=== PATIENT | female | born 1960 | race Caucasian/White ===

== ENCOUNTER 2017-01-07 09:59 | Emergency (ER) | payer OTHER, SELFPAY ==
[2017-01-07] MEDS ORDERED: Sodium Chloride 0.9% 10 ML Syringe FLUSH PRN ×2 (10:38→12:34)
[2017-01-07] MEDS ORDERED: methylPREDNISolone Sodium Succinate 125 MG/2 ML SDV IVPUSH ONE (10:39)
--- NOTE | 2017-01-07 11:45 | CR ---
Chest: Two views of the chest are obtained. Comparison: Previous chest x-ray of 03/02/15. Emphysematous change is seen. Heart size is normal. Upper mediastinum is within normal limits. Lungs are clear. Minimal degenerative spurring noted within the spine. Surgical clips seen within the upper abdomen. Impression: 1. Emphysematous change and other incidental findings. 2. Nothing acute is identified on two-view chest x-ray. Diagnostic code #2
[2017-01-07] MEDS ORDERED: diphenhydrAMINE 50 MG/ML SDV IVPUSH ONE (12:32)
[2017-01-07] MEDS ORDERED: Iopamidol 755 Mg/ML 100 ML Bottle IVPUSH ONE (12:34)
[2017-01-07] MEDS ORDERED: Sodium Chloride 0.9% 100 ML IV SCH (12:45)
--- NOTE | 2017-01-07 12:55 | EDM.PDOC ---
ED HISTORY OF PRESENT ILLNESS - General Chief Complaint: Respiratory Problem Stated Complaint: SHORTNESS OF BREATH/ HAS COPD Time Seen by Provider: 01/07/17 10:31 Source of Information: Reports: Patient History Limitations: Reports: No limitations - History of Present Illness INITIAL COMMENTS - FREE TEXT/NARRATIVE: The patient woke up this morning with shortness of breath and dizziness. She has a history of COPD. She has been a little more short of breath the past few days. She took her nebulizer treatment and it helped some. She has been having heart burn for the past month. She has no fever, chills, or cough. She has no swelling or pain in her legs. She had a charotidendartorectomy last year on the left. She had her right one checked with an US and there was 30% stenosis. She has been hearing a whooshing noise in her right ear lately. She is wondering if she has more of a blockage. Timing/Duration: Reports: Hour(s): (This morning) Severity: moderate Location, General: Reports: abdomen (Heartburn) Improves with: Reports: None Worsens with: Reports: None Associated Symptoms (General): Reports: shortness of breath. Denies: cough, fever/chills, nausea/vomiting - Related Data Allergies/ADRs: Allergies Allergy/AdvReac Type Severity Reaction Status Date / Time iodine Allergy Hives Verified 01/07/17 10:11 morphine Allergy Shortness Verified 01/07/17 10:11 of Breath Penicillins Allergy Other Verified 01/07/17 10:11 shrimp Allergy Hives Verified 01/07/17 10:11 Home Meds: Home Meds Albuterol [Proair HFA] 1 puff PO Q4HR PRN 03/02/15 [History] Albuterol/Ipratropium [DuoNeb 3.0-0.5 MG/3 ML] 3 ml NEB Q4HRRT 03/02/15 [History ] Simvastatin [Zocor] 20 mg PO BEDTIME 03/02/15 [History] traZODone 150 mg PO BEDTIME 03/02/15 [History] Aspirin [Halfprin] 81 mg PO DAILY #30 tab.ec 03/06/15 [Rx] Albuterol [Ventolin HFA] 1 inh INH ASDIRECTED PRN 01/07/17 [History] Multivits Min/Iron/FA/Herb#186 [Hair, Skin and Nails Caplet] 1 tab PO DAILY 11/21 [History] Omeprazole 1 tab PO DAILY PRN 01/07/17 [History] Prednisone [IJD: predniSONE] 40 mg PO WITHBREAKFAST #10 tab 01/07/17 [Rx] Ubidecarenone [Co Q-10] 1 tab PO DAILY 01/07/17 [History] Past Medical History Other HEENT History: Wears glasses Respiratory History: Reports: COPD Other Respiratory History: Has Duoneb inhalers PRN. Currently being treated for Bronchitis Gastrointestinal History: Reports: GERD Other Gastrointestinal History: several colon polyps Other Genitourinary History: history of kidney stones Other OB/BYN History: x2 vag del Other Psychiatric History: 1997 Other Hematologic History: with - Past Surgical History HEENT Surgical History: Reports: Tonsillectomy Cardiovascular Surgical History: Reports: Carotid stents Other Cardiovascular Surgeries/Procedures: History of cardiac catheterization, carotid artery stent GI Surgical History: Reports: Appendectomy, Cholecystectomy Female Surgical History: Reports: Hysterectomy Social & Family History - Tobacco Use Smoking Status *Q: Never Smoker Years of Tobacco use: 50 Used Tobacco, but Quit: No Second Hand Smoke Exposure: Yes - Caffeine Use Caffeine Use: Reports: Coffee - Recreational Drug Use Recreational Drug Use: No ED ROS GENERAL - Review of Systems Review Of Systems: See Below Constitutional: Reports: no symptoms HEENT: Reports: No symptoms Respiratory: Reports: Shortness of Breath, Wheezing. Denies: Cough Cardiovascular: Reports: No symptoms Endocrine: Reports: no symptoms GI/Abdominal: Reports: Abdominal pain (Heart burn). Denies: Nausea, Vomiting : Reports: no symptoms Musculoskeletal: Reports: no symptoms ED EXAM, GENERAL - Physical Exam Exam: See Below Exam Limited By: No limitations General Appearance: alert, no apparent distress Ears: normal external exam Nose: normal inspection Head: atraumatic, normocephalic Neck: normal inspection Respiratory/Chest: no respiratory distress, lungs clear, normal breath sounds Cardiovascular: regular rate, rhythm, no edema, no murmur GI/Abdominal: soft, non tender, no organomegaly, no mass Back Exam: normal inspection Extremities: normal inspection EKG INTERPRETATION EKG Date: 01/07/17 Time: 10:30 Rhythm: other (sinus bradycardia) Rate (beats/min): 58 [place]: normal P-wave: present QRS: normal ST-T: normal QT: normal EKG Interpretation Comments: Q waves in the anterior leads Course - Vital Signs Last Recorded V/S: Last Vital Signs Temp 97.5 F 01/07/17 10:08 Pulse 78 01/07/17 10:08 Resp 18 01/07/17 10:08 BP 172/87 H 01/07/17 10:08 Pulse Ox 98 01/07/17 10:08 - Orders/Labs/Meds Orders: Active Orders 24 hr Category Date Time Status Cardiac Monitoring [RC] . DIRECTED Care 01/07/17 10:38 Active EKG Documentation Completion [RC] STAT Care 01/07/17 10:39 Active Oxygen Therapy [RC] PRN Care 01/07/17 10:38 Active Peripheral IV Care [RC] . DIRECTED Care 01/07/17 10:39 Active CTA Neck W & W/O Contrast [Ang Neck] [CT] Stat Exams 01/07/17 12:28 Ordered Sodium Chloride 0.9% [Normal Saline] 100 ml Med 01/07/17 12:45 Active IV ASDIRECTED Sodium Chloride 0.9% [Saline Flush] Med 01/07/17 10:38 Active 10 ml FLUSH ASDIRECTED PRN Sodium Chloride 0.9% [Saline Flush] Med 01/07/17 12:34 Active 10 ml FLUSH ONETIME PRN Peripheral IV Insertion Adult [OM.PC] Stat Oth 01/07/17 10:38 Ordered Medication Orders Sodium Chloride (Normal Saline) 100 mls @ 65 mls/hr IV ASDIRECTED JAQUAN Sodium Chloride (Saline Flush) 10 ml FLUSH ASDIRECTED PRN PRN Reason: Keep Vein Open Last Admin: 01/07/17 11:00 Dose: 10 ml Sodium Chloride (Saline Flush) 10 ml FLUSH ONETIME PRN PRN Reason: IV FLUSH Labs: Laboratory Tests 01/07/17 01/07/17 Range/Units 11:00 11:00 WBC 6.60 (3.98-10.04) K/mm3 RBC 4.71 (3.98-5.22) M/mm3 Hgb 14.7 (11.2-15.7) gm/L Hct 44.1 (34.1-44.9) % MCV 93.6 (79.4-94.8) fl MCH 31.2 (25.6-32.2) pg MCHC 33.3 (32.2-35.5) g/dl RDW Std Deviation 48.7 H (36.4-46.3) fL Plt Count 257 (182-369) K/mm3 MPV 10.2 (9.4-12.3) fl Neut % (Auto) 57.4 (34.0-71.1) % Lymph % (Auto) 29.4 (19.3-51.7) % [place] % (Auto) 10.5 (4.7-12.5) % Eos % (Auto) 1.7 (0.7-5.8) Baso % (Auto) 0.8 (0.1-1.2) % Neut # (Auto) 3.80 (1.56-6.13) K/mm3 Lymph # (Auto) 1.94 (1.18-3.74) K/mm3 [place] # (Auto) 0.69 H (0.24-0.36) K/mm3 Eos # (Auto) 0.11 (0.04-0.36) K/mm3 Baso # (Auto) 0.05 (0.01-0.08) K/mm3 Sodium 144 (136-145) mEq/L Potassium 3.9 (3.5-5.1) mEq/L Chloride 107 (98-107) mEq/L Carbon Dioxide 27 (21-32) mEq/L Anion Gap 13.9 (5-15) BUN 11 (7-18) mg/dL Creatinine 0.7 (0.55-1.02) mg/dL Est Cr Clr Drug Dosing 82.01 mL/min Estimated GFR (MDRD) > 60 (>60) mL/min BUN/Creatinine Ratio 15.7 (14-18) Glucose 94 (74-106) mg/dL Calcium 9.9 (8.5-10.1) mg/dL Total Bilirubin 0.5 (0.2-1.0) mg/dL AST 14 L (15-37) U/L ALT 25 (14-59) U/L Alkaline Phosphatase 55 (46-116) U/L Troponin I < 0.017 (0.00-0.056) ng/mL Total Protein 7.4 (6.4-8.2) g/dl Albumin 4.1 (3.4-5.0) g/dl Globulin 3.3 gm/dL Albumin/Globulin Ratio 1.2 (1-2) Meds: Medications Generic Name Dose Route Start Last Admin Trade Name Freq PRN Reason Stop Dose Admin Sodium Chloride 100 mls @ 65 mls/hr 01/07/17 12:45 Normal Saline IV ASDIRECTED JAQUAN Sodium Chloride 10 ml 01/07/17 10:38 01/07/17 11:00 Saline Flush FLUSH 10 ml ASDIRECTED PRN Administration Keep Vein Open Sodium Chloride 10 ml 01/07/17 12:34 Saline Flush FLUSH ONETIME PRN IV FLUSH Discontinued Medications Generic Name Dose Route Start Last Admin Trade Name Freq PRN Reason Stop Dose Admin Diphenhydramine HCl 50 mg 01/07/17 12:32 01/07/17 12:47 Benadryl IVPUSH 01/07/17 12:33 50 mg ONETIME ONE Administration Iopamidol 100 ml 01/07/17 12:34 Isovue-370 (76%) IVPUSH 01/07/17 12:35 ONETIME ONE Methylprednisolone Sodium Succinate 125 mg 01/07/17 10:39 01/07/17 11:00 Solu-Medrol IVPUSH 01/07/17 10:40 125 mg ONETIME ONE Administration - Re-Assessments/Exams Free Text/Narrative Re-Assessment/Exam: 01/07/17 12:57 I ordered an IV saline lock, solu-medrol, EKG, CXR and labs. Her EKG shows a sinus bradycardia. Her CBC and CMP look good. Her trooponin was negative. I feel she has a COPD exacerbation. I will get her on some prednisone and she should continue her inhaler. I have ordered a CTA of her neck. I will call them with the results. Departure - Departure Time of Disposition: 13:00 Disposition: Home, Self-Care 01 Condition: good Clinical Impression: COPD exacerbation Prescriptions: Prednisone [IJD: predniSONE] 40 mg PO WITHBREAKFAST #10 tab Referrals: Zoran Zhou MD [Primary Care Provider] - 1 Week Forms: ED Department Discharge Additional Instructions: Take your medication as prescribed and prednisone 40mg daily for 5 days. I will call you the CT results. Follow up with your doctor within 1 week. Take some pepcid daily for 2 weeks for the reflux. - My Orders Last 24 Hours: My Active Orders 01/07/17 10:38 Cardiac Monitoring [RC] . DIRECTED Oxygen Therapy [RC] PRN Sodium Chloride 0.9% [Saline Flush] 10 ml FLUSH ASDIRECTED PRN Peripheral IV Insertion Adult [OM.PC] Stat 01/07/17 10:39 EKG Documentation Completion [RC] STAT Peripheral IV Care [RC] . DIRECTED 01/07/17 12:28 CTA Neck W & W/O Contrast [Ang Neck] [CT] Stat 01/07/17 12:34 Sodium Chloride 0.9% [Saline Flush] 10 ml FLUSH ONETIME PRN 01/07/17 12:45 Sodium Chloride 0.9% [Normal Saline] 100 ml IV ASDIRECTED - Assessment/Plan Last 24 Hours: My Active Orders 01/07/17 10:38 Cardiac Monitoring [RC] . DIRECTED Oxygen Therapy [RC] PRN Sodium Chloride 0.9% [Saline Flush] 10 ml FLUSH ASDIRECTED PRN Peripheral IV Insertion Adult [OM.PC] Stat 01/07/17 10:39 EKG Documentation Completion [RC] STAT Peripheral IV Care [RC] . DIRECTED 01/07/17 12:28 CTA Neck W & W/O Contrast [Ang Neck] [CT] Stat 01/07/17 12:34 Sodium Chloride 0.9% [Saline Flush] 10 ml FLUSH ONETIME PRN 01/07/17 12:45 Sodium Chloride 0.9% [Normal Saline] 100 ml IV ASDIRECTED
[2017-01-07 13:27] VITALS: BP 164/86
--- NOTE | 2017-01-07 14:40 | CT ---
CT angiogram of neck Technique: Multiple axial sections were obtained with contrast primarily in the arterial phase. Imaging obtained from the top the aortic arch through the [place]. Reconstructed MIP images were obtained. Findings: Scattered atherosclerotic calcified plaque is seen which is most prominent within and near the carotid bulbs. Plaque is worse on the right side. No hemodynamic significant stenosis is seen. Vertebral arteries appear to be patent. No aberrant arteries are seen. Mastoid sinuses and middle ear cavities are clear. Impression: 1. Scattered calcified plaque. No hemodynamic significant stenosis is seen. No aberrant arteries are identified. Diagnostic code #2
== END 2017-01-07 13:39 | disposition home or self-care (01) ==
LOC: JD.ED 09:59
DX: J44.1 Chronic obstructive pulmonary disease with (acute) exacerbation (principal); K21.9 Gastro-esophageal reflux disease without esophagitis; Z88.0 Allergy status to penicillin; Z88.5 Allergy status to narcotic agent
CPT/HCPCS: 36415; 70498; 71020; 80053; 84484; 85025; 93005; 96374; 96375; 99285; J1200; J2930; J7030; J7050; Q9967; 99284

== ENCOUNTER 2017-11-15 07:42 | Emergency (ER) | payer SELFPAY ==
--- NOTE | 2017-11-15 08:04 | EDM.PDOC ---
ED HPI GENERAL MEDICAL PROBLEM - General Chief Complaint: Cardiovascular Problem Stated Complaint: HIGH BLOOD PRESSURE Time Seen by Provider: 11/15/17 08:03 - History of Present Illness INITIAL COMMENTS - FREE TEXT/NARRATIVE: 57-year-old female presents emergency room with high blood pressure. Initial blood pressure emergency room is 214/94. Patient awoke this morning with a pounding headache she checked her blood pressure systolic was 220 over 90s. Patient takes losartan 25 mg in the evening and hydrochlorothiazide 25 mg in the morning she did take her morning hydrochlorothiazide. The patient is not expectorating any chest pain chest pressure or shortness of breath other than her baseline shortness of breath from her emphysema and COPD. She's had no nausea no vomiting. Normally her blood pressures been fairly well controlled. The patient's been having some intermittent chest pain on the left side however she has not had any of this chest pain today. The patient is scheduled for a Shahida scan on Thursday. Patient does have some intermittent acid reflux she uses as needed ranitidine or Prilosec. The ranitidine does not work as well as the Prilosec for her. Patient has a very strong family history of heart disease with people dying at premature ages including a sister, and a brother who had diabetes. The patient quit smoking but has a significant smoking history. - Related Data Allergies Allergy/AdvReac Type Severity Reaction Status Date / Time iodine Allergy Hives Verified 11/15/17 07:53 morphine Allergy Shortness Verified 11/15/17 07:53 of Breath Penicillins Allergy Other Verified 11/15/17 07:53 shrimp Allergy Hives Verified 11/15/17 07:53 Home Meds: Home Meds Albuterol [Proair HFA] 1 puff PO Q4HR PRN 03/02/15 [History] Albuterol/Ipratropium [DuoNeb 3.0-0.5 MG/3 ML] 3 ml NEB Q4HRRT 03/02/15 [History ] traZODone 150 mg PO BEDTIME 03/02/15 [History] Aspirin [Halfprin] 81 mg PO DAILY #30 tab.ec 03/06/15 [Rx] Albuterol [Ventolin HFA] 1 inh INH ASDIRECTED PRN 01/07/17 [History] Multivits Min/Iron/FA/Herb#186 [Hair, Skin and Nails Caplet] 1 tab PO DAILY 11/21 [History] Hydrochlorothiazide 25 mg PO DAILY 11/15/17 [History] Losartan [Cozaar] 25 mg PO DAILY 11/15/17 [History] Past Medical History Other HEENT History: Wears glasses Cardiovascular History: Reports: Hypertension Respiratory History: Reports: COPD Other Respiratory History: Has Duoneb inhalers PRN. Currently being treated for Bronchitis Gastrointestinal History: Reports: GERD Other Gastrointestinal History: several colon polyps Other Genitourinary History: history of kidney stones Other OB/BYN History: x2 vag del Other Psychiatric History: 1997 Other Hematologic History: with - Past Surgical History HEENT Surgical History: Reports: Tonsillectomy Cardiovascular Surgical History: Reports: Carotid Stents GI Surgical History: Reports: Appendectomy, Cholecystectomy Female Surgical History: Reports: Hysterectomy Social & Family History - Tobacco Use Smoking Status *Q: Current Every Day Smoker Years of Tobacco use: 40 Packs/Tins Daily: 0.5 Used Tobacco, but Quit: No Second Hand Smoke Exposure: Yes - Caffeine Use Caffeine Use: Reports: Coffee - Recreational Drug Use Recreational Drug Use: No ED ROS GENERAL - Review of Systems Review Of Systems: See Below Constitutional: Reports: No Symptoms, Weight Gain Respiratory: Reports: No Symptoms Cardiovascular: Reports: Blood Pressure Problem. Denies: Chest Pain, Edema, Lightheadedness, Palpitations, Syncope Endocrine: Reports: No Symptoms GI/Abdominal: Reports: No Symptoms : Reports: No Symptoms Neurological: Reports: Headache. Denies: Confusion, Dizziness, Seizure, Syncope , Difficulty Walking, Gait Disturbance Psychiatric: Reports: Anxiety. Denies: Agitation, Confusion, Depression, Mood Lability Hematologic/Lymphatic: Reports: No Symptoms Immunologic: Reports: No Symptoms ED EXAM, GENERAL - Physical Exam Exam: See Below Exam Limited By: Uncooperative General Appearance: No Apparent Distress, Other (Blood pressure is indeed elevated however this comes down with observation alone last systolic was down to 154) Eye Exam: Bilateral Eye: Normal Inspection Head: Atraumatic, Normocephalic Neck: Normal Inspection, Supple, Non-Tender, Full Range of Motion. No: Lymphadenopathy (L), Lymphadenopathy (R), Tender Lateral, Tender Midline Respiratory/Chest: No Respiratory Distress, Lungs Clear, Decreased Breath Sounds (Slightly). No: Crackles, Rales, Rhonchi, Wheezing Cardiovascular: Normal Peripheral Pulses, Regular Rate, Rhythm, No Edema, No Murmur GI/Abdominal: Normal Bowel Sounds, Soft, No Distention, Other (She has some epigastric discomfort with palpation however this is not causing her any problems.). No: Distended, Guarding, Rigid, Rebound Back Exam: Normal Inspection. No: CVA Tenderness (L), CVA Tenderness (R) Extremities: Normal Inspection, No Pedal Edema Neurological: Alert, Oriented, Normal Cognition Psychiatric: Normal Affect, Anxious (Slightly) EKG INTERPRETATION EKG Date: 11/15/17 Rhythm: NSR [place]: Normal P-Wave: Present QRS: Other (Q waves in V1,2,3) ST-T: Normal (Q waves in V12 and 3) QT: Normal Comparison: No Change (No change from January of last year) EKG Interpretation Comments: Unchanged abnormal EKG no acute ischemia suspected on this EKG. Course - Vital Signs Last Recorded V/S: Last Vital Signs Temp 37.2 C 11/15/17 07:50 Pulse 58 L 11/15/17 10:15 Resp 16 11/15/17 10:15 BP 155/90 H 11/15/17 10:15 Pulse Ox 98 11/15/17 10:36 - Orders/Labs/Meds Orders: Active Orders 24 hr Category Date Time Status EKG Documentation Completion [RC] ASDIRECTED Care 11/15/17 07:57 Active EKG Documentation Completion [RC] STAT Care 11/15/17 08:17 Inactive RT Aerosol Therapy [RC] ASDIRECTED Care 11/15/17 10:36 Active Chest 1V Frontal [CR] Stat Exams 11/15/17 08:17 Taken EKG 12 Lead [EK] Stat Ther 11/15/17 07:57 Ordered Labs: Laboratory Tests 11/15/17 11/15/17 11/15/17 Range/Units 08:30 08:33 08:33 WBC 6.96 (3.98-10.04) K/mm3 RBC 4.93 (3.98-5.22) M/mm3 Hgb 15.3 (11.2-15.7) gm/L Hct 45.9 H (34.1-44.9) % MCV 93.1 (79.4-94.8) fl MCH 31.0 (25.6-32.2) pg MCHC 33.3 (32.2-35.5) g/dl RDW Std Deviation 48.1 H (36.4-46.3) fL Plt Count 269 (182-369) K/mm3 MPV 10.1 (9.4-12.3) fl Neutrophils % (Manual) 59 (40-60) % Band Neutrophils % 0 (0-10) % Lymphocytes % (Manual) 35 (20-40) % Atypical Lymphs % 0 % Monocytes % (Manual) 4 (2-10) % Eosinophils % (Manual) 2 (0.7-5.8) % Basophils % (Manual) 0 L (0.1-1.2) Platelet Estimate Adequate RBC Morph Comment Normal Sodium 142 (136-145) mEq/L Potassium 3.9 (3.5-5.1) mEq/L Chloride 104 (98-107) mEq/L Carbon Dioxide 28 (21-32) mEq/L Anion Gap 13.9 (5-15) BUN 10 (7-18) mg/dL Creatinine 0.8 (0.55-1.02) mg/dL Est Cr Clr Drug Dosing 70.88 mL/min Estimated GFR (MDRD) > 60 (>60) mL/min BUN/Creatinine Ratio 12.5 L (14-18) Glucose 109 H (74-106) mg/dL Calcium 9.9 (8.5-10.1) mg/dL Total Bilirubin 0.3 (0.2-1.0) mg/dL AST 17 (15-37) U/L ALT 31 (14-59) U/L Alkaline Phosphatase 66 (46-116) U/L Troponin I < 0.017 (0.00-0.056) ng/mL Total Protein 7.7 (6.4-8.2) g/dl Albumin 4.1 (3.4-5.0) g/dl Globulin 3.6 gm/dL Albumin/Globulin Ratio 1.1 (1-2) Urine Color Light yellow (Yellow) Urine Appearance Clear (Clear) Urine pH 7.0 (5.0-8.0) Ur Specific [place] 1.015 (1.005-1.030) Urine Protein Negative (Negative) Urine Glucose (UA) Negative (Negative) Urine Ketones Negative (Negative) Urine Occult Blood Negative (Negative) Urine Nitrite Negative (Negative) Urine Bilirubin Negative (Negative) Urine Urobilinogen 0.2 (0.2-1.0) Ur Leukocyte Esterase Trace H (Negative) Urine RBC Not seen (0-5) /hpf Urine WBC 0-5 (0-5) /hpf Ur Epithelial Cells 5-10 H (0-5) /hpf Ur Squamous Epith Cells 5-10 H (0-5) /hpf Urine Bacteria Not seen (FEW) /hpf Urine Mucus Not seen (FEW) /hpf 11/15/17 Range/Units 10:45 WBC (3.98-10.04) K/mm3 RBC (3.98-5.22) M/mm3 Hgb (11.2-15.7) gm/L Hct (34.1-44.9) % MCV (79.4-94.8) fl MCH (25.6-32.2) pg MCHC (32.2-35.5) g/dl RDW Std Deviation (36.4-46.3) fL Plt Count (182-369) K/mm3 MPV (9.4-12.3) fl Neutrophils % (Manual) (40-60) % Band Neutrophils % (0-10) % Lymphocytes % (Manual) (20-40) % Atypical Lymphs % % Monocytes % (Manual) (2-10) % Eosinophils % (Manual) (0.7-5.8) % Basophils % (Manual) (0.1-1.2) Platelet Estimate RBC Morph Comment Sodium (136-145) mEq/L Potassium (3.5-5.1) mEq/L Chloride (98-107) mEq/L Carbon Dioxide (21-32) mEq/L Anion Gap (5-15) BUN (7-18) mg/dL Creatinine (0.55-1.02) mg/dL Est Cr Clr Drug Dosing mL/min Estimated GFR (MDRD) (>60) mL/min BUN/Creatinine Ratio (14-18) Glucose (74-106) mg/dL Calcium (8.5-10.1) mg/dL Total Bilirubin (0.2-1.0) mg/dL AST (15-37) U/L ALT (14-59) U/L Alkaline Phosphatase (46-116) U/L Troponin I < 0.017 (0.00-0.056) ng/mL Total Protein (6.4-8.2) g/dl Albumin (3.4-5.0) g/dl Globulin gm/dL Albumin/Globulin Ratio (1-2) Urine Color (Yellow) Urine Appearance (Clear) Urine pH (5.0-8.0) Ur Specific [place] (1.005-1.030) Urine Protein (Negative) Urine Glucose (UA) (Negative) Urine Ketones (Negative) Urine Occult Blood (Negative) Urine Nitrite (Negative) Urine Bilirubin (Negative) Urine Urobilinogen (0.2-1.0) Ur Leukocyte Esterase (Negative) Urine RBC (0-5) /hpf Urine WBC (0-5) /hpf Ur Epithelial Cells (0-5) /hpf Ur Squamous Epith Cells (0-5) /hpf Urine Bacteria (FEW) /hpf Urine Mucus (FEW) /hpf Meds: Medications Discontinued Medications Generic Name Dose Route Start Last Admin Trade Name Freq PRN Reason Stop Dose Admin Albuterol/Ipratropium 3 ml 11/15/17 10:36 11/15/17 10:42 Duoneb 3.0-0.5 Mg/3 Ml NEB 11/15/17 10:37 3 ml ONETIME ONE Administration Losartan Potassium 25 mg 11/15/17 09:00 11/15/17 09:11 Cozaar PO 11/15/17 09:01 25 mg ONETIME ONE Administration Sucralfate 1 gm 11/15/17 08:44 11/15/17 08:52 Carafate PO 11/15/17 08:45 1 gm ONETIME ONE Administration - Re-Assessments/Exams Free Text/Narrative Re-Assessment/Exam: 11/15/17 09:13 At this point we'll increase her losartan 25 mg twice daily down the road it may really be reasonable to stop her Con chlorothiazide change her to chlorthalidone however use caution as her potassium will be more likely to drop on the chlorthalidone. At this point we'll check head CT with her headache and elevated blood pressure cardiac labs cannot entirely exclude an anginal equivalent 11/15/17 09:[address] normal. Chest x-ray no acute changes unchanged from January of last year. Creatinine and other labs appear acceptable. Troponin negative. Her headache is better. 11/15/17 10:37 Urine back looks normal the patient is developed increasing shortness of breath. We will give her a DuoNeb she uses these at home. We'll check a second troponin. 11/15/17 12:05 Second troponin negative the patient has been breathing just fine after her nebulizer treatment with no recurrence of shortness of breath. Did discuss discharge plans she will increase her losartan to 25 mg twice daily and continue the hydrochlorothiazide 25 mg in the morning. Departure - Departure Time of Disposition: 12:05 Disposition: Home, Self-Care 01 Clinical Impression: Hypertension Referrals: Zoran Zhou MD [Primary Care Provider] - Forms: ED Department Discharge Additional Instructions: Return to the emergency room with any questions problems or worsening symptoms. Follow up with Dr. Silva as scheduled. Continue your hydrochlorothiazide every morning. Increase the losartan 25 mg to one in the morning and 1 in the evening. Follow-up with your stress test, the Shahida scan, as scheduled. - My Orders Last 24 Hours: My Active Orders 11/15/17 07:57 EKG Documentation Completion [RC] ASDIRECTED EKG 12 Lead [EK] Stat 11/15/17 08:17 EKG Documentation Completion [RC] STAT Chest 1V Frontal [CR] Stat 11/15/17 10:36 RT Aerosol Therapy [RC] ASDIRECTED - Assessment/Plan Last 24 Hours: My Active Orders 11/15/17 07:57 EKG Documentation Completion [RC] ASDIRECTED EKG 12 Lead [EK] Stat 11/15/17 08:17 EKG Documentation Completion [RC] STAT Chest 1V Frontal [CR] Stat 11/15/17 10:36 RT Aerosol Therapy [RC] ASDIRECTED
[2017-11-15] MEDS ORDERED: Sucralfate Suspension 1 GM/10 ML Cup PO ONE (08:44)
[2017-11-15] MEDS ORDERED: Losartan 25 MG Tab PO ONE (09:00)
--- NOTE | 2017-11-15 09:24 | CT ---
Head CT Technique: Multiple axial sections through the brain were obtained. Intravenous contrast was not utilized. Comparison: Prior head CT exam of 05/04/15 and MRI brain of 02/24/1915. Findings: Ventricles along with basal cisterns and sulci over the convexities are within normal limits for the patient's age. Minimal calcification is seen within the cortical surface on the left side within the left anterior parietal region which is stable from prior exam and is therefore incidental. Minimal basal ganglia calcification is seen. No abnormal parenchymal densities are otherwise seen. No evidence of intracranial hemorrhage. No midline shift or mass effect is seen. Atherosclerotic calcification is seen within the carotid siphon and vertebral vessels. Visualized sinuses are clear. No acute calvarial abnormality is seen. Impression: 1. Nothing acute is seen on noncontrast head CT study with incidental findings. No significant change is seen from previous head CT exam. Diagnostic code #2
[2017-11-15 10:21] VITALS: BP 155/90
[2017-11-15] MEDS ORDERED: Albuterol/Ipratropium 3.0-0.5 MG/3 ML Neb Soln NEB ONE (10:36)
--- NOTE | 2017-11-16 08:00 | CR ---
Chest: Frontal view of the chest was obtained. Comparison: Prior chest x-ray of 01/07/17. Slight scarring is noted of the left cardiac apex. Lungs otherwise are clear. Bony structures are unremarkable. Surgical clips are seen from prior cholecystectomy. Impression: 1. Incidental findings. Nothing acute is appreciated on frontal chest x-ray. Diagnostic code #2
== END 2017-11-15 12:11 | disposition home or self-care (01) ==
LOC: JD.ED 07:42
DX: I10 Essential (primary) hypertension (principal); J44.9 Chronic obstructive pulmonary disease, unspecified; K21.9 Gastro-esophageal reflux disease without esophagitis; F17.210 Nicotine dependence, cigarettes, uncomplicated; Z79.82 Long term (current) use of aspirin; Z79.899 Other long term (current) drug therapy; Z88.0 Allergy status to penicillin; Z88.5 Allergy status to narcotic agent; Z88.8 Allergy status to other drugs, medicaments and biological substances; Z91.013 Allergy to seafood
CPT/HCPCS: 36415; 70450; 71045; 80053; 81001; 84484; 85025; 93005; 94640; 99284; A9270; 93010

== ENCOUNTER 2018-01-02 11:18 | Emergency (ER) | payer SELFPAY ==
--- NOTE | 2018-01-02 11:47 | EDM.PDOC ---
ED HPI GENERAL MEDICAL PROBLEM - General Chief Complaint: Cardiovascular Problem Stated Complaint: High blood preasure AFTER STENTS PLACED Time Seen by Provider: 01/02/18 11:30 Source of Information: Reports: Patient, Family History Limitations: Reports: No Limitations (Daughter) - History of Present Illness INITIAL COMMENTS - FREE TEXT/NARRATIVE: 57-year-old female presents to the ED due to elevated blood pressure recordings at home today. She found her BP to be around 193 100 this morning. Current blood pressure here is 187/83. Initial recording when she came into the ED was 178/97. Patient had coronary stents 5 placed on [address] [place] Whittington and Dr. Dewey are her industrial retrofit designer. The right radial artery was used to place the stents in the right coronary artery. Apparently all 5 stents are in the right coronary artery. She had failed a stress test that was performed mid November. She apparently on echocardiogram within the last week is identified to have mitral prolapse syndrome as well with mild mitral insufficiency. 2 days ago i.e. when she got out of the hospital her blood pressure was recorded to be only 88/48. This was associated with feeling dizzy and lightheaded. Upon instructions from the industrial retrofit designer she withheld her valsartan and hydrochlorothiazide. She is on C she is now on Plavix and a baby aspirin daily. No headache but feeling slightly dizzy today even sitting. She is quite apprehensive and anxious clinically. arvedilol 3.125 mg twice a day. This is the newest medication for her. She has known COPD and quit smoking 4 years ago. She is not on home oxygen. Onset: Today Onset Date: 01/02/18 (Blood pressures are elevated at home today. Got 190s over 100 today at home.) Duration: Hour(s): Location: Reports: Other Quality: Reports: Other (Dizzy.) Severity: Mild Improves with: Reports: None Worsens with: Reports: None Context: Denies: Activity, Exercise, Lifting, Sick Contact, Trauma, Other Associated Symptoms: Denies: No Other Symptoms, Confusion, Chest Pain, Cough, cough w sputum, Diaphoresis, Fever/Chills, Headaches, Loss of Appetite, Malaise , Nausea/Vomiting, Rash, Seizure, Shortness of Breath, Syncope Treatments SKEIN WINDER: Reports: Other (see below) (None.) - Related Data Allergies Allergy/AdvReac Type Severity Reaction Status Date / Time iodine Allergy Hives Verified 11/15/17 07:53 morphine Allergy Shortness Verified 11/15/17 07:53 of Breath Penicillins Allergy Other Verified 11/15/17 07:53 shrimp Allergy Hives Verified 11/15/17 07:53 Home Meds: Home Meds Albuterol [Proair HFA] 1 puff PO Q4HR PRN 03/02/15 [History] Albuterol/Ipratropium [DuoNeb 3.0-0.5 MG/3 ML] 3 ml NEB Q4HRRT 03/02/15 [History ] traZODone 150 mg PO BEDTIME 03/02/15 [History] Aspirin [Halfprin] 81 mg PO DAILY #30 tab.ec 03/06/15 [Rx] Albuterol [Ventolin HFA] 1 inh INH ASDIRECTED PRN 01/07/17 [History] Multivits Min/Iron/FA/Herb#186 [Hair, Skin and Nails Caplet] 1 tab PO DAILY 11/21 [History] Hydrochlorothiazide 25 mg PO DAILY 11/15/17 [History] Losartan [Cozaar] 25 mg PO DAILY 11/15/17 [History] Past Medical History Other HEENT History: Wears glasses Cardiovascular History: Reports: Hypertension, Stents Other Cardiovascular History: [facility] Respiratory History: Reports: COPD Other Respiratory History: Has Duoneb inhalers PRN. Currently being treated for Bronchitis Gastrointestinal History: Reports: GERD Other Gastrointestinal History: several colon polyps Other Genitourinary History: history of kidney stones Other OB/BYN History: x2 vag del Other Psychiatric History: 1997 Other Hematologic History: with - Past Surgical History HEENT Surgical History: Reports: Tonsillectomy Cardiovascular Surgical History: Reports: Carotid Stents GI Surgical History: Reports: Appendectomy, Cholecystectomy Female Surgical History: Reports: Hysterectomy Social & Family History - Tobacco Use Smoking Status *Q: Former Smoker Years of Tobacco use: 40 Packs/Tins Daily: 0.5 Used Tobacco, but Quit: Yes Month/Year Tobacco Last Used: 4 yrs Second Hand Smoke Exposure: Yes - Caffeine Use Caffeine Use: Reports: Coffee - Recreational Drug Use Recreational Drug Use: No - Living Situation & Occupation Living situation: Reports: Single Occupation: Employed ED ROS GENERAL - Review of Systems Review Of Systems: See Below Constitutional: Reports: Decreased Appetite (Has not eaten yet today. Feels thirsty.). Denies: Fever, Chills, Malaise, Weakness, Fatigue, Weight Loss HEENT: Reports: No Symptoms Respiratory: Reports: No Symptoms Cardiovascular: Denies: Chest Pain, Blood Pressure Problem, Claudication, Dyspnea on Exertion, Edema, Lightheadedness, Orthopnea Endocrine: Reports: No Symptoms GI/Abdominal: Reports: Decreased Appetite : Reports: No Symptoms Skin: Reports: Other (Bruising volar aspect of the right forearm the distribution of the radial vein. The is ecchymoses up to the antecubital fossa. Range of motion is normal. ) Neurological: Reports: No Symptoms. Denies: Confusion, Dizziness, Headache, Numbness Psychiatric: Reports: No Symptoms Hematologic/Lymphatic: Reports: No Symptoms ED EXAM, GENERAL - Physical Exam Exam: See Below Exam Limited By: No Limitations General Appearance: Alert, WD/WN, Anxious Eye Exam: Bilateral Eye: Normal Inspection Head: Atraumatic, Normocephalic Neck: Normal Inspection, Supple, Non-Tender, Full Range of Motion. No: Lymphadenopathy (L), Lymphadenopathy (R) Respiratory/Chest: No Respiratory Distress, Lungs Clear, Normal Breath Sounds, No Accessory Muscle Use Cardiovascular: Normal Peripheral Pulses, Regular Rate, Rhythm, No Edema, No Gallop, No Murmur (Examination both the lying and seated position and I could not detect any murmur. Apparently she has mitral valve prolapse on recent echo.) Peripheral Pulses: 3+: Posterior Tibial (L), Posterior Tibial (R), Dorsalis Pedis (L), Dorsalis Pedis (R) GI/Abdominal: Normal Bowel Sounds, Soft, Non-Tender, No Organomegaly Back Exam: Normal Inspection, Full Range of Motion. No: CVA Tenderness (R) Extremities: Other (Ecchymoses volar aspect of the right forearm where she had radial artery catheterized for stent placement.) Neurological: Alert, Oriented, CN II-XII Intact, Normal Cognition Psychiatric: Anxious Course - Vital Signs Last Recorded V/S: Last Vital Signs Temp 36.4 C 01/02/18 11:29 Pulse 73 01/02/18 11:29 Resp 15 01/02/18 11:29 BP 178/97 H 01/02/18 11:29 Pulse Ox 98 01/02/18 11:29 - Radiology Interpretation Free Text/Narrative:: 57-year-old female presents the ED with elevated blood pressure at home reportedly 193/100. Initial blood pressure here was 178/97. The next was 183/ 87. Current blood pressure is now 159/76. She is quite anxious about recent events requiring 5 stents placement in her right coronary artery 5 days ago. She is currently not taking her bowel sounds from or hydrochlorothiazide due to low blood pressure the day after she got home from the hospital. Venous blood pressure was checked at home reportedly was only 88 systolic. She was therefore instructed to place these medications on hold. Appears that this was likely a misnomer. It's likely that her blood pressure is going up without the medication that she was normally prescribed. I'm going to wait and see how her blood pressure pounds over the next 20-30 minutes. - Re-Assessments/Exams Free Text/Narrative Re-Assessment/Exam: 01/02/18 12:35 blood pressures continued to improve while in the department. Current blood pressure is now 144 and 71. She is much less anxious. She's had a tough day since she's been up since 3:00 this morning due to her mom falling outside when she took the dog broke to go to the bathroom. Mom ended up suffering a deep laceration above her left eyebrow and needed to come to the hospital. She is thus admitted to the hospital with a fractured humerus. Therefore its been a very stressful morning events likely why her blood pressure was elevated. I will return her to valsartan 25 mg twice daily and hydrochlorothiazide 25 mg in the morning only. Prior to that she was on 50 mg of losartan at bedtime and 20 5 in the morning. Back a little bit since she's currently on carvedilol which is a new medication for her. Departure - Departure Time of Disposition: 12:37 Disposition: Home, Self-Care 01 Condition: Fair Clinical Impression: Essential hypertension Referrals: Zoran Zhou MD [Primary Care Provider] - Forms: ED Department Discharge Additional Instructions: Evaluation in the emergency room today in regards to elevated blood pressure first identified at home this morning and confirmed elevated when you first attended the ED. The highest number we got was 183/97. Over time i.e. watchful waiting blood pressure continued to improve and at the time of discharge is down to 144/71. No heart rhythm abnormalities were detected the entire time you' re in the ED. However it stayed in the 150s for quite a lengthy period of time suggesting that you still have mildly elevated systolic blood pressure which is the top number. The bottom number is normal as is under 85. My suggestion is to return to the valsartan 25 mg only twice daily instead of 50 mg in the evening. And the hydrochlorothiazide thiazide 25 mg in the morning may be continued as well. Continue to check blood pressure daily usually first thing in the morning and follow-up with industrial retrofit designer next week as planned.
[2018-01-02 13:01] VITALS: BP 144/71
== END 2018-01-02 12:55 | disposition home or self-care (01) ==
LOC: JD.ED 11:18
DX: S50.11XA Contusion of right forearm, initial encounter (principal); I10 Essential (primary) hypertension; J44.9 Chronic obstructive pulmonary disease, unspecified; K21.9 Gastro-esophageal reflux disease without esophagitis; Z91.09 Other allergy status, other than to drugs and biological substances; Z88.0 Allergy status to penicillin; Z91.013 Allergy to seafood; Z79.82 Long term (current) use of aspirin; Z79.899 Other long term (current) drug therapy; Z87.891 Personal history of nicotine dependence; Z90.49 Acquired absence of other specified parts of digestive tract; Z95.5 Presence of coronary angioplasty implant and graft; Z88.8 Allergy status to other drugs, medicaments and biological substances; Z87.442 Personal history of urinary calculi; X58.XXXA Exposure to other specified factors, initial encounter
CPT/HCPCS: 99283

== ENCOUNTER 2019-02-03 19:01 | Emergency (ER) | payer MEDICAID, OTHER ==
[2019-02-03 19:16] VITALS: BP 158/73
--- NOTE | 2019-02-03 20:05 | EDM.PDOC ---
ED HPI GENERAL MEDICAL PROBLEM - General Chief Complaint: Respiratory Problem Stated Complaint: OXYGEN LOW Time Seen by Provider: 02/03/19 19:41 Source of Information: Reports: Patient, RN Notes Reviewed History Limitations: Reports: No Limitations - History of Present Illness INITIAL COMMENTS - FREE TEXT/NARRATIVE: The patient states that she has a history of COPD, although, to her knowledge, she has never been evaluated by a Dining Room Attendant, and has never undergone pulmonary function tests. She states that she has been experiencing dyspnea on exertion for the past 6-7 months, and dyspnea at rest for the past few months. She reports 3 weeks of a cough productive of yellowish sputum. She states that she might have had slight wheezing. No recent fever. No recent chest pain or palpitations. The patient states that she checks her oxygen saturation with a finger pulse oximeter at home whenever she feels short of breath, which is typically 6-7 times a day. She takes a DuoNeb 4 times a day, and an albuterol MDI 1-2 times a day (the patient does not have a space chamber, she does not shake the MDI long enough, and her technique is poor). The patient now presents to the ED, stating that her oxygen saturation was in the low 80s earlier today. Here in the ED, her initial oxygen saturation was found to be 88%, however, I noticed that the waveform had poor correlation with the patient's monitor worker. I switched the oximeter to a different finger, finding her oxygen saturation to be around 93% with good correlation. The patient's PCP is Dr. Zoran Zhou. Her Physiology Teacher is Dr. Luis Felder. The patient does not recall the name of her vascular surgeon. - Related Data Allergies Allergy/AdvReac Type Severity Reaction Status Date / Time iodine Allergy Hives Verified 02/03/19 19:15 morphine Allergy Shortness Verified 02/03/19 19:15 of Breath Penicillins Allergy Other Verified 02/03/19 19:15 shrimp Allergy Hives Verified 02/03/19 19:15 Home Meds: Home Meds Albuterol [Proair HFA] 1 puff PO Q4HR PRN 03/02/15 [History] Albuterol/Ipratropium [DuoNeb 3.0-0.5 MG/3 ML] 3 ml NEB Q4HRRT 03/02/15 [History ] traZODone 150 mg PO BEDTIME 03/02/15 [History] Aspirin [Halfprin] 81 mg PO DAILY #30 tab.ec 03/06/15 [Rx] Multivit-Min/Iron/Folic/Rou374 [Hair, Skin and Nails Caplet] 1 tab PO DAILY 11/21 [History] Losartan [Cozaar] 25 mg PO DAILY 11/15/17 [History] hydroCHLOROthiazide [Hydrochlorothiazide] 25 mg PO DAILY 11/15/17 [History] Biotin 2,000 mg PO DAILY 01/02/18 [History] Budesonide/Formoterol Fumarate [Symbicort 80-4.5 Mcg Inhaler] 2 puff INH BID [History] Carvedilol 3.125 mg PO BID 01/02/18 [History] Clopidogrel [Plavix] 75 mg PO DAILY 01/02/18 [History] Losartan [Cozaar] 50 mg PO BEDTIME 01/02/18 [History] Nitroglycerin 1 tab SL ASDIRECTED PRN 01/02/18 [History] Pantoprazole [ProTONIX] 40 mg PO DAILY 01/02/18 [History] Rosuvastatin [Crestor] 20 mg PO DAILY 01/02/18 [History] Ubidecarenone [Co Q-10] 10 mg PO DAILY 01/02/18 [History] Past Medical History HEENT History: Reports: Impaired Vision Other HEENT History: Wears glasses Cardiovascular History: Reports: CAD, High Cholesterol, Hypertension Respiratory History: Reports: COPD (likely, but never tested) Gastrointestinal History: Reports: Colon Polyp, GERD Genitourinary History: Reports: Renal Calculus Musculoskeletal History: Reports: Arthritis Neurological History: Reports: TIA Psychiatric History: Reports: Other (See Below) (Insomnia) - Past Surgical History HEENT Surgical History: Reports: Oral Surgery (wisdom teeth extraction), Tonsillectomy Cardiovascular Surgical History: Reports: Carotid Endarterectomy (left), Coronary Artery Stent (x 5, 12/29/2017), Other (See Below) (Coronary angiogram approximately 2002 with mild disease. Coronary angiogram 12/29/2017 with multivessel disease) GI Surgical History: Reports: Appendectomy, Cholecystectomy (1997), Colonoscopy (x 2). 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 ED EXAM, GENERAL - Physical Exam Exam: See Below Exam Limited By: No Limitations General Appearance: Alert, WD/WN, No Apparent Distress Eye Exam: Bilateral Eye: EOMI, Normal Inspection Ears: Normal External Exam, Hearing Grossly Normal Nose: Normal Inspection Throat/Mouth: Normal Inspection, Normal Lips, Normal Voice, No Airway Compromise Head: Atraumatic, Normocephalic Neck: Normal Inspection, Full Range of Motion Respiratory/Chest: No Respiratory Distress, No Accessory Muscle Use, Chest Non- Tender, Crackles (few bibasilar). No: Decreased Breath Sounds, Rhonchi, Wheezing, Prolonged Expiration Cardiovascular: Normal Peripheral Pulses, Regular Rate, Rhythm, No Gallop, No JVD, No Murmur, No Rub Peripheral Pulses: 4+: Radial (L), Radial (R) GI/Abdominal: Normal Bowel Sounds, Soft, Non-Tender, No Organomegaly, No Distention, No Abnormal Bruit, No Mass (Female) Exam: Deferred Rectal (Female) Exam: Deferred Back Exam: Normal Inspection, Full Range of Motion, NT Extremities: Normal Inspection, Normal Range of Motion, No Pedal Edema, Normal Capillary Refill Neurological: Alert, Oriented, Normal Cognition, No Motor/Sensory Deficits Psychiatric: Normal Affect Skin Exam: Warm, Dry, Intact, Normal Color, No Rash Course - Vital Signs Last Recorded V/S: Last Vital Signs Temp 36.5 C 02/03/19 19:13 Pulse 90 02/03/19 19:13 Resp 18 02/03/19 19:13 BP 158/73 H 02/03/19 19:13 Pulse Ox 88 L 02/03/19 19:13 - Re-Assessments/Exams Free Text/Narrative Re-Assessment/Exam: 02/03/19 20:03 The patient's oxygen saturation was in the high 80s, however, there was very poor correlation on the waveform. I switched her pulse oximeter to a different finger and managed to get a good correlation with her monitor worker, and at that time, her oxygen saturation was 93% on room air. Based on that reading, the patient would not qualify for supplemental oxygen, however, I will have the respiratory therapist check the patient's oxygen saturation with ambulation, to see if she might qualify under those circumstances. On auscultation, the patient has a few bibasilar crackles, but no expiratory wheezes whatsoever, with good air movement and no prolonged expiratory phase. I have ordered a chest x-ray, but if relatively unremarkable, I don't need blood work. 02/03/19 20:31 Two-view chest radiograph reviewed. The cardiac silhouette is within normal limits. No pulmonary vascular congestion. No pleural effusions. No focal infiltrate. No pneumothorax. There is hyperinflation and bilateral diaphragmatic flattening, consistent with COPD. [place] are seen on the lateral projection that likely correlate to a prior cholecystectomy. Formal read per the Radiologist pending. The patient was ambulated on room air, and maintained an oxygen saturation of 89 -91%. Based on the above findings, the patient does not qualify for supplemental oxygen at this time. While the patient likely has COPD, the diagnosis of COPD is made by pulmonary function tests. For today's purposes, I will have the respiratory therapist provide the patient a space chamber, for when she does require albuterol, and I will recommend that the patient follow-up with her PCP to discuss the option of referral to a Dining Room Attendant for PFTs. Departure - Departure Time of Disposition: 21:00 Disposition: Home, Self-Care 01 Condition: Good Clinical Impression: Dyspnea - Discharge Information *PRESCRIPTION DRUG MONITORING PROGRAM REVIEWED*: Not Applicable *COPY OF PRESCRIPTION DRUG MONITORING REPORT IN PATIENT [place]: Not Applicable Referrals: Zoran Zhou MD [Primary Care Provider] - Luis Felder DO [Ordering Only Provider] - Forms: ED Department Discharge Additional Instructions: You were seen in the emergency room for a low oxygen saturation reading at home. Workup in the ER included a chest x-ray, which showed changes consistent with emphysema, but no suggestion of pneumonia. As discussed, the diagnosis of COPD is made by pulmonary function tests, not by chest x-ray. You likely have COPD, but need pulmonary function tests to be certain. Your oxygen saturation was found to be 93% on room air at rest, and 89-91% with ambulation. As discussed, you do not currently qualify for supplemental oxygen. You likely will one day, but not today. You were provided a space chamber by the respiratory therapist. Use this any time you use a metered-dose inhaler - your albuterol. Be sure to shake the inhaler for 1 minute prior to using. We recommend that you follow-up with your PCP, Dr. Zoran Silva, to discuss the option of referral to a Dining Room Attendant for pulmonary function tests. Once a proper diagnosis has been made, appropriate long-term management can be recommended. If any other problems, please do not hesitate to return to the ER.
--- NOTE | 2019-02-03 21:01 | CR ---
Chest: 2 views of the chest were obtained. Comparison: Prior chest x-ray of 11/15/17. Heart size and mediastinum are normal. Nodular density seen at the left base. Lungs otherwise are clear but hyperinflated. Degenerative change scattered within the spine. Impression: 1. Nodular density within the left base. Uncertain if this is due to scarring or actual nodule. Noncontrast chest CT recommended to further evaluate. This can be performed non-emergently. 2. Emphysematous change. 3. Nothing acute is otherwise seen. Diagnostic code #9
== END 2019-02-03 21:10 | disposition home or self-care (01) ==
LOC: JD.ED 19:01
DX: R06.00 Dyspnea, unspecified (principal); I10 Essential (primary) hypertension; I25.10 Atherosclerotic heart disease of native coronary artery without angina pectoris; K21.9 Gastro-esophageal reflux disease without esophagitis; M19.90 Unspecified osteoarthritis, unspecified site; Z86.73 Personal history of transient ischemic attack (TIA), and cerebral infarction without residual deficits; Z88.0 Allergy status to penicillin; Z88.5 Allergy status to narcotic agent; Z91.013 Allergy to seafood; Z88.8 Allergy status to other drugs, medicaments and biological substances; Z79.82 Long term (current) use of aspirin; Z79.899 Other long term (current) drug therapy; Z98.890 Other specified postprocedural states; Z90.49 Acquired absence of other specified parts of digestive tract; Z90.710 Acquired absence of both cervix and uterus; Z87.891 Personal history of nicotine dependence; Z90.722 Acquired absence of ovaries, bilateral
CPT/HCPCS: 71046; 71046-26; 99283; 99284-25

== ENCOUNTER 2019-08-10 12:54 | Emergency (ER) | payer SELFPAY ==
[2019-08-10 13:09] VITALS: BP 218/100; PULSE 83
[2019-08-10] MEDS ORDERED: Albuterol/Ipratropium 3.0-0.5 MG/3 ML Neb Soln NEB ONE (13:47)
--- NOTE | 2019-08-10 13:49 | EDM.PDOC ---
ED HPI GENERAL MEDICAL PROBLEM - General Chief Complaint: Cardiovascular Problem Stated Complaint: HIGH BLOOD PRESSURE SENT BY ROMI Time Seen by Provider: 08/10/19 13:49 Source of Information: Reports: Patient, Family (son) History Limitations: Reports: No Limitations - History of Present Illness INITIAL COMMENTS - FREE TEXT/NARRATIVE: 59-year-old female presents to the ED after a near syncopal event while she was at [employer] this morning. He states the second time this is happened in the last month. She was standing at the counter getting ready to pay her bill when she suddenly felt like she was being pulled towards the ground. She had to hang on to the countertop for a lengthy period of time before she started to feel okay. I believe this was 2-3 minutes. The restaurant cashier actually came and held onto her for a period of time. When she got home she thought her blood pressure was extremely elevated and was told to wait a good hour and it was still elevated when she spoke to her photographic process worker's clerical administrative assistant. They advised increasing of her carvedilol from 3.25-12.5 mg twice daily. Details tell whether she became scared and had an adrenaline surge which increased her blood pressure or whether her blood pressure is actually running a bit low. These are unlikely to be causing hypotension. She has a history of generalized atherosclerosis and COPD. He has had her left carotid artery endarterectomy about 3 years ago due to 80% occlusion with no stroke. They're watching the right side closely fairly is 50-60% occluded. She states she has an angiogram or CT and a gram of her head and neck as well as an ultrasound of the carotid artery. 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 Pressure upon arrival is elevated at 175/87. Early was 218/104 at home. This suggests that she was quite anxious. She has a productive sounding cough but no real chest pain. Onset: Today Onset Date: 08/10/19 Onset Time: 12:45 Duration: Hour(s): Location: Reports: Generalized (Sense of being pulled to the ground and near syncope like attack.) Severity: Moderate Improves with: Reports: Other (Improves spontaneously.) Worsens with: Reports: None, Other (She was able to drive herself home after this event without any problems.) Associated Symptoms: Reports: Cough, cough w sputum, Malaise. Denies: Confusion , Chest Pain, Diaphoresis, Fever/Chills, Headaches, Loss of Appetite, Nausea/ Vomiting, Rash, Seizure, Shortness of Breath, Syncope, Weakness Chest Pain Score (Numeric/FACES): 5 - Related Data Allergies Allergy/AdvReac Type Severity Reaction Status Date / Time iodine Allergy Hives Verified 08/10/19 13:09 morphine Allergy Shortness Verified 08/10/19 13:09 of Breath Penicillins Allergy Other Verified 08/10/19 13:09 shrimp Allergy Hives Verified 08/10/19 13:09 Home Meds: Home Meds Albuterol [Proair HFA] 1 puff PO Q4HR PRN 03/02/15 [History] Albuterol/Ipratropium [DuoNeb 3.0-0.5 MG/3 ML] 3 ml NEB Q4HRRT 03/02/15 [History ] traZODone 150 mg PO BEDTIME 03/02/15 [History] Aspirin [Halfprin] 81 mg PO DAILY #30 tab.ec 03/06/15 [Rx] hydroCHLOROthiazide [Hydrochlorothiazide] 25 mg PO DAILY 11/15/17 [History] Budesonide/Formoterol Fumarate [Symbicort 80-4.5 Mcg Inhaler] 2 puff INH BID [History] Clopidogrel [Plavix] 75 mg PO DAILY 01/02/18 [History] Pantoprazole [ProTONIX] 40 mg PO DAILY 01/02/18 [History] Rosuvastatin [Crestor] 20 mg PO DAILY 01/02/18 [History] carvediloL [Carvedilol] 3.125 mg PO BID 01/02/18 [History] carvediloL [Carvedilol] 6.25 mg PO BID #60 tablet 08/10/19 [Rx] levoFLOXacin [Levaquin] 500 mg PO DAILY #10 tab 08/10/19 [Rx] Past Medical History HEENT History: Reports: Impaired Vision Other HEENT History: Wears glasses Cardiovascular History: Reports: High Cholesterol, Hypertension, Stents, Other ( See Below) Other Cardiovascular History: leaking mitral valve Respiratory History: Reports: COPD Other Respiratory History: Has Duoneb inhalers PRN. Currently being treated for Bronchitis Gastrointestinal History: Reports: GERD Other Gastrointestinal History: several colon polyps Other Genitourinary History: history of kidney stones Other UPSTAIRS MAID History: x2 vag del Musculoskeletal History: Reports: Arthritis Psychiatric History: Reports: Panic Attack Other Psychiatric History: 1997 Other Hematologic History: with - Infectious Disease History Infectious Disease History: Reports: Chicken Pox, Measles - Past Surgical History HEENT Surgical History: Reports: Tonsillectomy Cardiovascular Surgical History: Reports: Carotid Stents GI Surgical History: Reports: Appendectomy, Cholecystectomy Female Surgical History: Reports: Hysterectomy Social & Family History - Family History Family Medical History: Noncontributory - Tobacco Use Smoking Status *Q: Former Smoker Used Tobacco, but Quit: Yes Month/Year Tobacco Last Used: 2014 - Caffeine Use Caffeine Use: Reports: Coffee - Recreational Drug Use Recreational Drug Use: No - Living Situation & Occupation Living situation: Reports: Single 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 Denies: Fever, Chills, Decreased Appetite, Weight Loss HEENT: Reports: Glasses, Vertigo (A component of vertigo but this seems to be more violent and sudden onset) Respiratory: Reports: Shortness of Breath ( nonsustained like vertigo.), Wheezing (chronically due to COPD. ), Cough, Sputum, Other (Very productive sounding cough as well as oxygen at night with a concentrator due to hypoxia occurring during the night) Cardiovascular: Reports: Chest Pain (Vocational left upper anterior chest pain which she equates to), Blood Pressure Problem ( GERD. When she burps and belching can make it go away.), Dyspnea on Exertion (Lightheadedness dizzy and a feeling of falling to the floor earlier today chronically), Lightheadedness. Denies: Claudication, Orthopnea ( chronic hypertension. ) GI/Abdominal: Reports: No Symptoms : Reports: Frequency Musculoskeletal: Reports: Neck Pain, Joint Pain (Knees hips and lower back at times.) Skin: Reports: No Symptoms Neurological: Reports: Other (Lordosis fugax reported in her right eye about a week ago. Within 15 minutes. It was likely due to atherosclerosis debris entering the retinal artery causing transient retinal artery occlusion. She is already on Plavix and aspirin not much else to offer her.). Denies: Confusion, Dizziness, Headache, Numbness Psychiatric: Reports: Anxiety Hematologic/Lymphatic: Reports: No Symptoms Immunologic: Reports: No Symptoms ED EXAM, GENERAL - Physical Exam Exam: See Below Exam Limited By: No Limitations General Appearance: Alert, WD/WN, Anxious, Moderate Distress, Other (Very anxious and agitated. Initial blood pressure is elevated at 218/100. Pulse is 83 and sinus respiratory is 19 O2 sats 99% on room air she is afebrile at 36.3.) Eye Exam: Bilateral Eye: Normal Inspection Ears: Normal TMs Throat/Mouth: Normal Inspection, Normal Lips, Normal Oropharynx, Other Head: Atraumatic, Normocephalic (Uvula is in the midline) Neck: Normal Inspection, Supple, Non-Tender, Full Range of Motion, Carotid Bruit (Right carotid bruit.). No: Lymphadenopathy (L), Lymphadenopathy (R) Respiratory/Chest: No Accessory Muscle Use, Chest Non-Tender, Decreased Breath Sounds, Wheezing (Decreased air into the lower 30% of lung benavides bilaterally.) . No: Lungs Clear, Normal Breath Sounds Cardiovascular: Regular Rate, Rhythm, No Edema, No Gallop, No Murmur, No Rub. No: Normal Peripheral Pulses Peripheral Pulses: 1+: Posterior Tibial (L), Posterior Tibial (R), Dorsalis Pedis (L), Dorsalis Pedis (R) GI/Abdominal: Normal Bowel Sounds, Soft, Non-Tender, No Organomegaly Back Exam: Normal Inspection, Full Range of Motion. No: CVA Tenderness (L), CVA Tenderness (R) Extremities: Normal Inspection, Normal Range of Motion, Non-Tender Neurological: Alert, Oriented, CN II-XII Intact, Normal Cognition Psychiatric: Normal Affect, Normal Mood Skin Exam: Warm, Dry, Intact, Normal Color, No Rash EKG INTERPRETATION EKG Date: 08/10/19 Time: 13:22 Rhythm: NSR Rate (Beats/Min): 71 [place]: Normal P-Wave: Present QRS: Other (Q waves V1 to V3 compatible with an old anteroseptal myocardial infarction.) ST-T: Normal QT: Normal EKG Interpretation Comments: Abnormal ECG Course - Vital Signs Last Recorded V/S: Last Vital Signs Temp 36.3 C 08/10/19 13:07 Pulse 83 08/10/19 13:07 Resp 19 08/10/19 13:07 BP 218/100 H 08/10/19 13:07 Pulse Ox 95 08/10/19 13:47 Orthostatic Blood Pressure [ 173/86 Standing] Orthostatic Blood Pressure [ 175/87 Sitting] Orthostatic Blood Pressure [ 174/80 Supine] - Orders/Labs/Meds Orders: Active Orders 24 hr Category Date Time Status EKG 12 Lead [EKG Documentation Completion] [RC] STAT Care 08/10/19 13:20 Active Holter Monitor 48 Hours [RC] .PRN Care 08/10/19 15:16 Active Orthostatic Vital Signs [RC] ASDIRECTED Care 08/10/19 13:47 Active RT Aerosol Therapy [RC] ASDIRECTED Care 08/10/19 13:47 Active Chest 1V Frontal [CR] Stat Exams 08/10/19 13:48 Taken Labs: Laboratory Tests 08/10/19 08/10/19 08/10/19 Range/Units 14:00 14:00 14:00 WBC 7.89 (3.98-10.04) K/mm3 RBC 4.70 (3.98-5.22) M/mm3 Hgb 14.9 (11.2-15.7) gm/dl Hct 43.9 (34.1-44.9) % MCV 93.4 (79.4-94.8) fl MCH 31.7 (25.6-32.2) pg MCHC 33.9 (32.2-35.5) g/dl RDW Std Deviation 46.1 (36.4-46.3) fL Plt Count 243 (182-369) K/mm3 MPV 10.0 (9.4-12.3) fl Neut % (Auto) 62.8 (34.0-71.1) % Lymph % (Auto) 28.9 (19.3-51.7) % [place] % (Auto) 6.7 (4.7-12.5) % Eos % (Auto) 1.1 (0.7-5.8) Baso % (Auto) 0.5 (0.1-1.2) % Neut # (Auto) 4.95 (1.56-6.13) K/mm3 Lymph # (Auto) 2.28 (1.18-3.74) K/mm3 [place] # (Auto) 0.53 H (0.24-0.36) K/mm3 Eos # (Auto) 0.09 (0.04-0.36) K/mm3 Baso # (Auto) 0.04 (0.01-0.08) K/mm3 ESR 17 (0-20) mm/hr PT 10.7 (9.7-12.0) SECONDS INR 0.98 APTT 25 (22-31) SECONDS Sodium (136-145) mEq/L Potassium (3.5-5.1) mEq/L Chloride (98-107) mEq/L Carbon Dioxide (21-32) mEq/L Anion Gap (5-15) BUN (7-18) mg/dL Creatinine (0.55-1.02) mg/dL Est Cr Clr Drug Dosing mL/min Estimated GFR (MDRD) (>60) mL/min BUN/Creatinine Ratio (14-18) Glucose (80-115) mg/dL Calcium (8.5-10.1) mg/dL Magnesium (1.8-2.4) mg/dl Total Bilirubin (0.2-1.0) mg/dL AST (15-37) U/L ALT (14-59) U/L Alkaline Phosphatase (46-116) U/L CK-MB (CK-2) (0-3.6) ng/ml Troponin I (0.00-0.056) ng/mL C-Reactive Protein (<1.0) mg/dL NT-Pro-B Natriuret Pep (0-125) pg/mL Total Protein (6.4-8.2) g/dl Albumin (3.4-5.0) g/dl Globulin gm/dL Albumin/Globulin Ratio (1-2) 08/10/19 08/10/19 Range/Units 14:00 14:00 WBC (3.98-10.04) K/mm3 RBC (3.98-5.22) M/mm3 Hgb (11.2-15.7) gm/dl Hct (34.1-44.9) % MCV (79.4-94.8) fl MCH (25.6-32.2) pg MCHC (32.2-35.5) g/dl RDW Std Deviation (36.4-46.3) fL Plt Count (182-369) K/mm3 MPV (9.4-12.3) fl Neut % (Auto) (34.0-71.1) % Lymph % (Auto) (19.3-51.7) % [place] % (Auto) (4.7-12.5) % Eos % (Auto) (0.7-5.8) Baso % (Auto) (0.1-1.2) % Neut # (Auto) (1.56-6.13) K/mm3 Lymph # (Auto) (1.18-3.74) K/mm3 [place] # (Auto) (0.24-0.36) K/mm3 Eos # (Auto) (0.04-0.36) K/mm3 Baso # (Auto) (0.01-0.08) K/mm3 ESR (0-20) mm/hr PT (9.7-12.0) SECONDS INR APTT (22-31) SECONDS Sodium 141 (136-145) mEq/L Potassium 3.6 (3.5-5.1) mEq/L Chloride 103 (98-107) mEq/L Carbon Dioxide 30 (21-32) mEq/L Anion Gap 11.6 (5-15) BUN 11 (7-18) mg/dL Creatinine 0.7 (0.55-1.02) mg/dL Est Cr Clr Drug Dosing 75.94 mL/min Estimated GFR (MDRD) > 60 (>60) mL/min BUN/Creatinine Ratio 15.7 (14-18) Glucose 94 (80-115) mg/dL Calcium 9.8 (8.5-10.1) mg/dL Magnesium 2.1 (1.8-2.4) mg/dl Total Bilirubin 0.3 (0.2-1.0) mg/dL AST 12 L (15-37) U/L ALT 26 (14-59) U/L Alkaline Phosphatase 55 (46-116) U/L CK-MB (CK-2) 3.9 H (0-3.6) ng/ml Troponin I < 0.017 (0.00-0.056) ng/mL C-Reactive Protein < 0.2 (<1.0) mg/dL NT-Pro-B Natriuret Pep 145 H (0-125) pg/mL Total Protein 7.6 (6.4-8.2) g/dl Albumin 4.3 (3.4-5.0) g/dl Globulin 3.3 gm/dL Albumin/Globulin Ratio 1.3 (1-2) Meds: Medications Discontinued Medications Generic Name Dose Route Start Last Admin Trade Name Vincent PRN Reason Stop Dose Admin Albuterol/Ipratropium 3 ml 08/10/19 13:47 08/10/19 13:53 Duoneb 3.0-0.5 Mg/3 Ml NEB 08/10/19 13:48 3 ml ONETIME ONE Administration - Radiology Interpretation Free Text/Narrative:: 59-year-old female presents the ED after near syncopal event at while she was at [email or web address] today. This is happened twice in the last month where she will suddenly get feeling like she's being pulled to the floor and vertigo-like symptoms. When she got home her blood pressure was found to be markedly elevated and she waited over an hour and it was still elevated and therefore spoke to her photographic process worker's PA. They recommended an increase her carvedilol from 3.25 mg twice a day to 12.5 mg twice a day. Because of her symptom complex elected to come to the hospital. She has no signs that she's had a stroke. Initial blood pressure was very high but came down on its own without treatment to 138/81.Her ECG shows no signs of acute ischemic change. Lab work will be commenced including a chest x-ray. There was no evidence of orthostatic hypotension. Supine blood pressure was 174/80 with respiratory to 15 sitting pressure was 175/87 with a heart rate of 84 and standing blood pressure was 173/ 86 with a heart rate of 85. She did feel little lightheaded and dizzy with standing. - Re-Assessments/Exams Free Text/Narrative Re-Assessment/Exam: 08/10/19 14:29 chest x-ray reveals mildly hyperinflated lung benavides compatible with COPD pattern. Cardiac silhouette is upper limits of normal. Prominent right pulmonary artery with no pleural effusions. No obvious vascular congestion. 08/10/19 15:00 Labs are back and reveal a normal white count at 7.89. Auto differential shows 62.8% neutrophils. Hemoglobin is 14.9 with hematocrit of 43.9. Platelet count 243,000. PT is 10.7 with an INR of 0.98. PTT is 25. Sodium 141 with a potassium of 3.6. Chloride 103 with a bicarbonate 30. Anion gap is 11.6. B1 is 11 with a creatinine of 0.7. GFR is greater than 60. Glucose is 94 with a calcium of 9.8. Magnesium is 2.1. Bilirubin is 0.3 remainder the liver function studies are normal. CK-MB fraction is 3.9 stable troponin I is less than 0.017 C-reactive protein less than 0.2 BNP is 145 total protein 7.6 with an albumin of 4.3. 08/10/19 15:17 it's unclear what is causing her current symptomatology. There is a possibility that she has some basilar artery insufficiency and she said to spell similar last month where she nearly fills like she's being thrown to the ground. There is nothing wrong with her ears. She really doesn't have any vertigo symptoms. He has known vascular disease and she reports loss of vision transilluminal right eye suggesting retinal artery occlusion transiently about a week ago. She is already on Plavix and aspirin and therefore there is not much else to offer her in this regard. Previous left carotid artery surgery because of 80% occlusion and they're watching her right carotid artery closely. If it's been about a year since her last CT angiogram it was probably time to repeat it to see if there is significant occlusion of the vertebral artery system or bacillary artery system causing her current symptom complex. Pressure was terribly high when she came but did settle down nicely to 138/81 while she was in the ED. I'm reluctant to increase her carvedilol from 3.25-12.5 mg all at one time. We will instead increase it to 6.25 mg twice a day. She has bronchitis clinically with a very productive sounding cough and a negative chest x-ray. I will place her on Levaquin 500 mg once daily for the next 10 days since her QT interval is normal. I'm also going to have a Holter monitor placed for 48 hours to see if it'll strip picker any abnormalities such as bradycardia or transient blocks that would cause her to feel like she was going to pass out. Departure - Departure Time of Disposition: 15:20 Disposition: Home, Self-Care 01 Reason for Transfer *Q: Other Condition: Fair Clinical Impression: Postural dizziness with near syncope Acute bronchitis Qualifiers: Bronchitis organism: unspecified organism Qualified Code(s): J20.9 - Acute bronchitis, unspecified Prescriptions: carvediloL [Carvedilol] 6.25 mg PO BID #60 tablet levoFLOXacin [Levaquin] 500 mg PO DAILY #10 tab Referrals: Zoran Zhou MD [Primary Care Provider] - Forms: ED Department Discharge Additional Instructions: Evaluation in the emergency room today primarily due to markedly elevated blood pressure after feeling dizzy and nearly falling while at [employer] earlier today. This is the second reported attack within the last month. 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 I will check with Dr. Miner's office and if it's been close to a year since you had your last CT angiogram it may be worthwhile repeating that test. Her blood pressure came down to 138/81 you were in the emergency room. You cardiology's office had suggested an increasing her carvedilol to 12.5 mg twice daily from 3.25 mg twice daily. I think this might be too high. I would suggest increasing to 6.25 mg twice daily and I've written a prescription in this regard. ECOG a 3.25 mg tablets just taking 2 of them twice daily until they're gone and then fill the prescription for the 6.25 mg twice daily. Zestril to monitor for 48 hours to see if there is any heart arrhythmias that could cause your postural dizziness and sensation of near falling. Her again within about 48 hours and it's over read by photographic process worker. Third problem was developing bronchitis with chest infection and productive sounding cough. X-ray was negative for any pneumonia. A also negative for any heart related disease disorder or fluid in the lungs etc. Adjust antibiotic Levaquin 500 mg once daily for the next 10 days to clear up chest infection. - My Orders Last 24 Hours: My Active Orders 08/10/19 13:20 EKG 12 Lead [EKG Documentation Completion] [RC] STAT 08/10/19 13:47 Orthostatic Vital Signs [RC] ASDIRECTED RT Aerosol Therapy [RC] ASDIRECTED 08/10/19 13:48 Chest 1V Frontal [CR] Stat 08/10/19 15:16 Holter Monitor 48 Hours [RC] .PRN - Assessment/Plan Last 24 Hours: My Active Orders 08/10/19 13:20 EKG 12 Lead [EKG Documentation Completion] [RC] STAT 08/10/19 13:47 Orthostatic Vital Signs [RC] ASDIRECTED RT Aerosol Therapy [RC] ASDIRECTED 08/10/19 13:48 Chest 1V Frontal [CR] Stat 08/10/19 15:16 Holter Monitor 48 Hours [RC] .PRN
--- NOTE | 2019-08-15 06:34 | CR ---
Chest: Portable view of the chest was obtained. Comparison: Prior chest x-ray of 02/03/19. Heart size and mediastinum are normal. Lungs are clear. Bony structures are unremarkable for the patient's age. Lungs are slightly hyperinflated compatible with emphysematous change. Impression: 1. Emphysematous change. 2. Nothing acute is appreciated on portable chest x-ray. Diagnostic code #2 This report was dictated in [place] Standard Time
== END 2019-08-10 15:37 | disposition home or self-care (01) ==
LOC: JD.ED 12:54
DX: R55 Syncope and collapse (principal); J44.0 Chronic obstructive pulmonary disease with (acute) lower respiratory infection; J20.9 Acute bronchitis, unspecified; E78.00 Pure hypercholesterolemia, unspecified; I10 Essential (primary) hypertension; K21.9 Gastro-esophageal reflux disease without esophagitis; Z88.8 Allergy status to other drugs, medicaments and biological substances; Z88.0 Allergy status to penicillin; Z88.5 Allergy status to narcotic agent; Z91.018 Allergy to other foods; Z79.899 Other long term (current) drug therapy; Z79.82 Long term (current) use of aspirin; Z79.51 Long term (current) use of inhaled steroids; Z79.02 Long term (current) use of antithrombotics/antiplatelets; Z87.891 Personal history of nicotine dependence
CPT/HCPCS: 36415; 71045; 71045-26; 80053; 82553; 83735; 83880; 84484; 85025; 85610; 85652; 85730; 86140; 93005; 93010; 93225; 93226; 94640; 99284; 99284-25; J7620-GY

== ENCOUNTER 2020-03-27 14:44 | Emergency (ER) | payer OTHER ==
[2020-03-27 14:54] VITALS: BP 150/77; PULSE 85
--- NOTE | 2020-03-27 15:05 | EDM.PDOC ---
ED HPI GENERAL MEDICAL PROBLEM - General Chief Complaint: Respiratory Problem Stated Complaint: SOB/COPD Time Seen by Provider: 03/27/20 15:05 Source of Information: Reports: Patient History Limitations: Reports: No Limitations - History of Present Illness INITIAL COMMENTS - FREE TEXT/NARRATIVE: 59-year-old female presents to the ED with an exacerbation of her COPD. She is usually on oxygen 2 L by nasal cannula at bedtime but has been using it throughout the day for the last 3 days. She started to feel unwell about a week ago and now has produced yellowish sputum on a regular basis. She has used her nebulizer at home on multiple occasions today with no relief. She was up most of last night due to dyspnea as well. Had to sit up in a easy chair the last 2 nights. No recent changes to any of her medications. She also has known coronary disease with 5 previous stent placements before she had a myocardial infarction. A left carotid stent has been placed as well. She has stopped smoking. He is still working and does not believe she got exposed to anybody with COVID knowingly. Onset: Gradual Onset Date: 03/20/20 (Really increasing shortness of breath and wheezing over the last week particular about the last 3 days.) Duration: Day(s):, Getting Worse Location: Reports: Chest (Adductive cough yellowish sputum. Shortness of breath with wheezing.) Quality: Reports: Other (Dyspnea) Severity: Severe (with wheezing.) Improves with: Reports: None (Even multiple use of home nebulizers have not helped her breathing.) Worsens with: Reports: Movement Context: Reports: Other (Exacerbation of COPD.). Denies: Activity, Exercise (Even walking 10 steps make her more short of breath than usual.), Lifting, Sick Contact, Trauma Associated Symptoms: Reports: Cough, cough w sputum, Fever/Chills, Loss of Appetite (Feels but no defined fever.), Malaise, Shortness of Breath, Weakness. 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) (And her albuterol neb treatments more than usual.) - Related Data Allergies Allergy/AdvReac Type Severity Reaction Status Date / Time iodine Allergy Hives Verified 03/27/20 14:54 morphine Allergy Shortness Verified 03/27/20 14:54 of Breath Penicillins Allergy Other Verified 03/27/20 14:54 shrimp Allergy Hives Verified 03/27/20 14:54 Home Meds: Home Meds Albuterol [Proair HFA] 1 puff PO Q4HR PRN 03/02/15 [History] Albuterol/Ipratropium [DuoNeb 3.0-0.5 MG/3 ML] 3 ml NEB Q4HRRT 03/02/15 [History] traZODone 150 mg PO BEDTIME 03/02/15 [History] Aspirin [Halfprin] 81 mg PO DAILY #30 tab.ec 03/06/15 [Rx] hydroCHLOROthiazide [Hydrochlorothiazide] 25 mg PO DAILY 11/15/17 [History] Budesonide/Formoterol Fumarate [Symbicort 80-4.5 Mcg Inhaler] 2 puff INH BID 01/02/18 [History] Clopidogrel [Plavix] 75 mg PO DAILY 01/02/18 [History] Pantoprazole [ProTONIX] 40 mg PO DAILY 01/02/18 [History] Rosuvastatin [Crestor] 20 mg PO DAILY 01/02/18 [History] carvediloL [Carvedilol] 3.125 mg PO BID 01/02/18 [History] carvediloL [Carvedilol] 6.25 mg PO BID #60 tablet 08/10/19 [Rx] levoFLOXacin [Levaquin] 500 mg PO DAILY #10 tab 08/10/19 [Rx] Cefdinir [Omnicef] 300 mg PO BID #16 cap 03/27/20 [Rx] predniSONE [Prednisone] 20 mg PO ASDIRECTED #15 tablet 03/27/20 [Rx] Past Medical History HEENT History: Reports: Impaired Vision Other HEENT History: Wears glasses Cardiovascular History: Reports: CAD, High Cholesterol, Hypertension, PVD (She has had a left carotid endarterectomy or stent placement as well.), Stents (Had 5 stents placed at the same setting 3 years ago due to severe coronary disease. Apparently no myocardial infarction was identified at that time.), Other (See Below) Other Cardiovascular History: leaking mitral valve Respiratory History: Reports: COPD (Severe.) Other Respiratory History: Has Duoneb inhalers PRN. 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 Musculoskeletal History: Reports: Arthritis Psychiatric History: Reports: Panic Attack Other Psychiatric History: 1997 Other Hematologic History: with - Infectious Disease History Infectious Disease History: Reports: Chicken Pox, Measles - Past Surgical History HEENT Surgical History: Reports: Tonsillectomy Cardiovascular Surgical History: Reports: Carotid Stents GI Surgical History: Reports: Appendectomy, Cholecystectomy Female Surgical History: Reports: Hysterectomy Social & Family History - Family History Family Medical History: Noncontributory - Tobacco Use Smoking Status *Q: Former Smoker Used Tobacco, but Quit: Yes Month/Year Tobacco Last Used: 20 - Caffeine Use Caffeine Use: Reports: Coffee - Living Situation & Occupation Living situation: Reports: Single 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 Denies: Fever HEENT: Reports: Glasses Respiratory: Reports: Shortness of Breath, Wheezing, Cough, Sputum. Denies: Pleuritic Chest Pain, Hemoptysis Cardiovascular: Reports: Blood Pressure Problem (Elevated sputum), Dyspnea on Exertion, Lightheadedness. Denies: No Symptoms, Chest Pain, Claudication, Edema (Occasionally.), Orthopnea, Palpitations (Chronically) Endocrine: Reports: Fatigue GI/Abdominal: Reports: Decreased Appetite. Denies: Constipation, Diarrhea, Nausea, Stool Incontinence, Vomiting : Reports: Frequency Musculoskeletal: Reports: Back Pain Skin: Reports: Bruising (Is everywhere abdominal wall on all extremities as she is on blood thinners.) Neurological: Reports: No Symptoms Psychiatric: Reports: No Symptoms Hematologic/Lymphatic: Reports: No Symptoms Immunologic: Reports: No Symptoms ED EXAM, GENERAL - Physical Exam Exam: See Below Exam Limited By: No Limitations General Appearance: Alert, WD/WN, Moderate Distress, Other ([place] distress. Temperature is 37.1 heart rate 85 respiratory it is 20 to 26/min. Sats are 91%. 93% on 3 L. BP is 150/77.) Eye Exam: Bilateral Eye: Normal Inspection, PERRL Ears: Normal TMs Nose: Nasal Drainage (She has a chronic postnasal drip from allergic rhinitis.), Clear Rhinorrhea, Other Throat/Mouth: Normal Inspection, Normal Lips, Normal Oropharynx, Other Head: Atraumatic, Normocephalic (Is mildly dry.) Neck: Normal Inspection, Full Range of Motion, Limited Range of Motion, Tender Lateral. No: Lymphadenopathy (L), Lymphadenopathy (R), Tender Midline, Thyromegaly Respiratory/Chest: Respiratory Distress (Kidney at 20 to 24/min.), Decreased Breath Sounds (She has decreased breath sounds to the lower 50 to 60% of lung benavides with hardly any air entry in either lower lobe.), Rhonchi, Other (Active sounding cough.). No: Lungs Clear (Chi right upper lobe of lung. Decreased air entry to the left upper anterior lung as well.), Normal Breath Sounds Cardiovascular: Regular Rate, Rhythm, No Edema, No Gallop, No JVD, Other (Sounds are very difficult to auscultate due to severe COPD. Apparently she has a mitral insufficiency murmur but I could not hear there is on examination.). No: Normal Peripheral Pulses Peripheral Pulses: 1+: Posterior Tibial (L) (Is in her feet are just barely palpable. There is no dependent edema. She clinically has peripheral vascular disease), Posterior Tibial (R), Dorsalis Pedis (L), Dorsalis Pedis (R), 2+: Carotid (L), Carotid (R) (Has had a left carotid endarterectomy) GI/Abdominal: Normal Bowel Sounds, Soft, Non-Tender, No Organomegaly, Distended (Duc distended intubated to percussion in the epigastrium compatible with aerophagia.). No: Guarding, Rigid, Rebound, Tender Back Exam: Normal Inspection, Full Range of Motion. No: CVA Tenderness (L), CVA Tenderness (R) Extremities: Normal Inspection, Normal Range of Motion, Non-Tender, No Pedal Edema Neurological: Alert, Oriented, CN II-XII Intact, Normal Cognition Psychiatric: Normal Affect, Normal Mood Skin Exam: Warm, Dry, Intact, Normal Color, No Rash EKG INTERPRETATION EKG Date: 03/27/20 Time: 16:03 Rhythm: NSR Rate (Beats/Min): 70 [place]: Normal P-Wave: Present QRS: Other (Ways V1 to V3, with an old anteroseptal myocardial infarction. Decreased voltage in the limb leads a COPD pattern.) ST-T: Other (Nonspecific T wave flattening noted in aVL and V2.) QT: Normal EKG Interpretation Comments: Abnormal ECG Course - Vital Signs Last Recorded V/S: Last Vital Signs Temp 37.1 C 03/27/20 14:51 Pulse 85 03/27/20 14:51 Resp 20 03/27/20 14:51 BP 150/77 H 03/27/20 14:51 Pulse Ox 93 L 03/27/20 15:31 - Orders/Labs/Meds Orders: Active Orders 24 hr Category Date Time Status EKG Documentation Completion [RC] STAT Care 03/27/20 15:16 Active Oxygen Therapy [RC] ASDIRECTED Care 03/27/20 15:16 Active RT Aerosol Therapy [RC] ASDIRECTED Care 03/27/20 15:14 Active CULTURE BLOOD [] Stat Lab 03/27/20 15:45 Received CULTURE BLOOD [] Stat Lab 03/27/20 15:58 Received CULTURE SPUTUM + SMEAR [] Stat Lab 03/27/20 16:30 Received CULTURE URINE [] Routine Lab 03/27/20 15:15 Received Albuterol/Ipratropium [DuoNeb 3.0-0.5 MG/3 ML] Med 03/27/20 15:13 Active 3 ml NEB Q4H PRN Dextrose 5%-0.9% NaCl [Dextrose 5%-Normal Saline] 1,000 Med 03/27/20 15:15 Active ml IV ASDIRECTED Blood Culture x2 Reflex Set [OM.PC] Stat Oth 03/27/20 15:18 Ordered Medication Orders Albuterol/Ipratropium (Duoneb 3.0-0.5 Mg/3 Ml) 3 ml NEB Q4H PRN PRN Reason: Shortness Of Breath/wheezing Last Admin: 03/27/20 15:28 Dose: 3 ml Documented by: TEENA Dextrose/Sodium Chloride (Dextrose 5%-Normal Saline) 1,000 mls @ 125 mls/hr IV ASDIRECTED JAQUAN Last Admin: 03/27/20 16:01 Dose: 125 mls/hr Documented by: LOREN Labs: Laboratory Tests 03/27/20 03/27/20 03/27/20 Range/Units 15:15 15:17 15:45 WBC 10.18 H (3.98-10.04) K/mm3 RBC 4.59 (3.98-5.22) M/mm3 Hgb 14.0 (11.2-15.7) gm/dl Hct 43.5 (34.1-44.9) % MCV 94.8 (79.4-94.8) fl MCH 30.5 (25.6-32.2) pg MCHC 32.2 (32.2-35.5) g/dl RDW Std Deviation 49.0 H (36.4-46.3) fL Plt Count 239 (182-369) K/mm3 MPV 10.1 (9.4-12.3) fl Neutrophils % (Manual) 54 (40-60) % Band Neutrophils % 2 (0-10) % Lymphocytes % (Manual) 40 (20-40) % Atypical Lymphs % 0 % Monocytes % (Manual) 2 (2-10) % Eosinophils % (Manual) 2 (0.7-5.8) % Basophils % (Manual) 0 L (0.1-1.2) Platelet Estimate Adequate RBC Morph Comment Normal PT (9.7-12.0) SECONDS INR APTT (22-31) SECONDS Puncture Site Lt radial ABG pH 7.53 H (7.35-7.45) ABG pCO2 33.0 L (35.0-45.0) mmHg ABG pO2 72.0 L (80.0-100.0) mmHg ABG HCO3 27.6 H (22.0-26.0) meq/L ABG O2 Saturation 95.6 L (96.0-97.0) % ABG Base Excess 5.4 H (-2-2.0) Bill Test Positive O2 Delivery Device Nasal cannula Oxygen Flow Rate 2.0 FiO2 0.00 L (21.00-100.00) % Sodium (136-145) mEq/L Potassium (3.5-5.1) mEq/L Chloride (98-107) mEq/L Carbon Dioxide (21-32) mEq/L Anion Gap (5-15) BUN (7-18) mg/dL Creatinine (0.55-1.02) mg/dL Est Cr Clr Drug Dosing mL/min Estimated GFR (MDRD) (>60) mL/min BUN/Creatinine Ratio (14-18) Glucose (80-115) mg/dL Lactic Acid (0.4-2.0) mmol/L Calcium (8.5-10.1) mg/dL Magnesium (1.8-2.4) mg/dl Total Bilirubin (0.2-1.0) mg/dL AST (15-37) U/L ALT (14-59) U/L Alkaline Phosphatase (46-116) U/L Troponin I (0.00-0.056) ng/mL C-Reactive Protein (<1.0) mg/dL NT-Pro-B Natriuret Pep (0-125) pg/mL Total Protein (6.4-8.2) g/dl Albumin (3.4-5.0) g/dl Globulin gm/dL Albumin/Globulin Ratio (1-2) Urine Color Yellow (Yellow) Urine Appearance Slt cloudy H (Clear) Urine pH 7.0 (5.0-8.0) Ur Specific [place] 1.020 (1.005-1.030) Urine Protein Negative (Negative) Urine Glucose (UA) Negative (Negative) Urine Ketones Negative (Negative) Urine Occult Blood Negative (Negative) Urine Nitrite Negative (Negative) Urine Bilirubin Negative (Negative) Urine Urobilinogen 0.2 (0.2-1.0) Ur Leukocyte Esterase 1+ H (Negative) Urine RBC 0-5 (0-5) /hpf Urine WBC 5-10 H (0-5) /hpf Ur Squamous Epith Cells 10-20 H (0-5) /hpf Urine Bacteria Few (FEW) /hpf Urine Mucus Not seen (FEW) /hpf SARS Virus RNA (PCR) (NEGATIVE) 03/27/20 03/27/20 03/27/20 Range/Units 15:45 15:45 15:45 WBC (3.98-10.04) K/mm3 RBC (3.98-5.22) M/mm3 Hgb (11.2-15.7) gm/dl Hct (34.1-44.9) % MCV (79.4-94.8) fl MCH (25.6-32.2) pg MCHC (32.2-35.5) g/dl RDW Std Deviation (36.4-46.3) fL Plt Count (182-369) K/mm3 MPV (9.4-12.3) fl Neutrophils % (Manual) (40-60) % Band Neutrophils % (0-10) % Lymphocytes % (Manual) (20-40) % Atypical Lymphs % % Monocytes % (Manual) (2-10) % Eosinophils % (Manual) (0.7-5.8) % Basophils % (Manual) (0.1-1.2) Platelet Estimate RBC Morph Comment PT 11.1 (9.7-12.0) SECONDS INR 1.02 APTT 27 (22-31) SECONDS Puncture Site ABG pH (7.35-7.45) ABG pCO2 (35.0-45.0) mmHg ABG pO2 (80.0-100.0) mmHg ABG HCO3 (22.0-26.0) meq/L ABG O2 Saturation (96.0-97.0) % ABG Base Excess (-2-2.0) Bill Test O2 Delivery Device Oxygen Flow Rate FiO2 (21.00-100.00) % Sodium 143 (136-145) mEq/L Potassium 3.2 L (3.5-5.1) mEq/L Chloride 104 (98-107) mEq/L Carbon Dioxide 31 (21-32) mEq/L Anion Gap 11.2 (5-15) BUN 16 (7-18) mg/dL Creatinine 0.7 (0.55-1.02) mg/dL Est Cr Clr Drug Dosing 75.94 mL/min Estimated GFR (MDRD) > 60 (>60) mL/min BUN/Creatinine Ratio 22.9 H (14-18) Glucose 85 (80-115) mg/dL Lactic Acid 0.5 (0.4-2.0) mmol/L Calcium 9.0 (8.5-10.1) mg/dL Magnesium 2.3 (1.8-2.4) mg/dl Total Bilirubin 0.6 (0.2-1.0) mg/dL AST 12 L (15-37) U/L ALT 23 (14-59) U/L Alkaline Phosphatase 47 (46-116) U/L Troponin I < 0.017 (0.00-0.056) ng/mL C-Reactive Protein 8.6 H* (<1.0) mg/dL NT-Pro-B Natriuret Pep (0-125) pg/mL Total Protein 7.4 (6.4-8.2) g/dl Albumin 4.1 (3.4-5.0) g/dl Globulin 3.3 gm/dL Albumin/Globulin Ratio 1.2 (1-2) Urine Color (Yellow) Urine Appearance (Clear) Urine pH (5.0-8.0) Ur Specific [place] (1.005-1.030) Urine Protein (Negative) Urine Glucose (UA) (Negative) Urine Ketones (Negative) Urine Occult Blood (Negative) Urine Nitrite (Negative) Urine Bilirubin (Negative) Urine Urobilinogen (0.2-1.0) Ur Leukocyte Esterase (Negative) Urine RBC (0-5) /hpf Urine WBC (0-5) /hpf Ur Squamous Epith Cells (0-5) /hpf Urine Bacteria (FEW) /hpf Urine Mucus (FEW) /hpf SARS Virus RNA (PCR) (NEGATIVE) 03/27/20 03/27/20 Range/Units 15:45 15:50 WBC (3.98-10.04) K/mm3 RBC (3.98-5.22) M/mm3 Hgb (11.2-15.7) gm/dl Hct (34.1-44.9) % MCV (79.4-94.8) fl MCH (25.6-32.2) pg MCHC (32.2-35.5) g/dl RDW Std Deviation (36.4-46.3) fL Plt Count (182-369) K/mm3 MPV (9.4-12.3) fl Neutrophils % (Manual) (40-60) % Band Neutrophils % (0-10) % Lymphocytes % (Manual) (20-40) % Atypical Lymphs % % Monocytes % (Manual) (2-10) % Eosinophils % (Manual) (0.7-5.8) % Basophils % (Manual) (0.1-1.2) Platelet Estimate RBC Morph Comment PT (9.7-12.0) SECONDS INR APTT (22-31) SECONDS Puncture Site ABG pH (7.35-7.45) ABG pCO2 (35.0-45.0) mmHg ABG pO2 (80.0-100.0) mmHg ABG HCO3 (22.0-26.0) meq/L ABG O2 Saturation (96.0-97.0) % ABG Base Excess (-2-2.0) Bill Test O2 Delivery Device Oxygen Flow Rate FiO2 (21.00-100.00) % Sodium (136-145) mEq/L Potassium (3.5-5.1) mEq/L Chloride (98-107) mEq/L Carbon Dioxide (21-32) mEq/L Anion Gap (5-15) BUN (7-18) mg/dL Creatinine (0.55-1.02) mg/dL Est Cr Clr Drug Dosing mL/min Estimated GFR (MDRD) (>60) mL/min BUN/Creatinine Ratio (14-18) Glucose (80-115) mg/dL Lactic Acid (0.4-2.0) mmol/L Calcium (8.5-10.1) mg/dL Magnesium (1.8-2.4) mg/dl Total Bilirubin (0.2-1.0) mg/dL AST (15-37) U/L ALT (14-59) U/L Alkaline Phosphatase (46-116) U/L Troponin I (0.00-0.056) ng/mL C-Reactive Protein (<1.0) mg/dL NT-Pro-B Natriuret Pep 122 (0-125) pg/mL Total Protein (6.4-8.2) g/dl Albumin (3.4-5.0) g/dl Globulin gm/dL Albumin/Globulin Ratio (1-2) Urine Color (Yellow) Urine Appearance (Clear) Urine pH (5.0-8.0) Ur Specific [place] (1.005-1.030) Urine Protein (Negative) Urine Glucose (UA) (Negative) Urine Ketones (Negative) Urine Occult Blood (Negative) Urine Nitrite (Negative) Urine Bilirubin (Negative) Urine Urobilinogen (0.2-1.0) Ur Leukocyte Esterase (Negative) Urine RBC (0-5) /hpf Urine WBC (0-5) /hpf Ur Squamous Epith Cells (0-5) /hpf Urine Bacteria (FEW) /hpf Urine Mucus (FEW) /hpf SARS Virus RNA (PCR) Negative (NEGATIVE) Meds: Medications Generic Name Dose Route Start Last Admin Trade Name Freq PRN Reason Stop Dose Admin Albuterol/Ipratropium 3 ml 03/27/20 15:13 03/27/20 15:28 Duoneb 3.0-0.5 Mg/3 Ml NEB 3 ml Q4H PRN Administration Shortness Of Breath/wheezing Dextrose/Sodium Chloride 1,000 mls @ 125 mls/hr 03/27/20 15:15 03/27/20 16:01 Dextrose 5%-Normal Saline IV 125 mls/hr ASDIRECTED JAQUAN Administration Discontinued Medications Generic Name Dose Route Start Last Admin Trade Name Vincent PRN Reason Stop Dose Admin Albuterol 7.5 mg 03/27/20 15:14 03/27/20 15:34 Proventil Neb Soln NEB 03/27/20 15:15 7.5 mg ONETIME ONE Administration Albuterol Confirm 03/27/20 15:49 03/27/20 16:08 Proventil Neb Soln Administered 03/27/20 15:50 Not Given Dose 2.5 mg .ROUTE .STK-MED ONE Ceftriaxone Sodium 2 gm/ 100 mls @ 200 mls/hr 03/27/20 16:54 03/27/20 17:24 Sodium Chloride IV 03/27/20 17:23 200 mls/hr ONETIME ONE Administration Methylprednisolone Sodium Succinate 125 mg 03/27/20 16:36 03/27/20 17:21 Solu-Medrol IVPUSH 03/27/20 16:37 125 mg ONETIME ONE Administration - Radiology Interpretation Free Text/Narrative:: 59-year-old female presents to the ED with an acute exacerbation of her COPD. No apparent reason or trigger for this. She does not feel she contracted a cold. She has been gradually getting worse over the last week with increased dyspnea on minimal exertion. She has had to sleep in the upright position the last 2 nights. Is now starting to cough up some yellow sputum. Some chills but no definite definite fever. She still goes to work and has been very careful and as far she knows not exposed anybody with COVID-19 virus. She is getting no relief with a multiple use of her albuterol inhalers today. Uses oxygen usually 2 L at nighttime but has been using it all day long the last few days because of dyspnea. Early on 3 L/min in the ED to achieve O2 sats of 93%. Examination reveals decreased air entry to the posterior lung benavides by over 60%. Occasional expiratory wheeze appreciated. Rhonchi right upper lobe of lung decreased air entry to left upper lobe of lung as well on exam. No JVD and no dependent edema to suggest heart failure. She has known coronary disease having had 5 stents placed 3 years ago. She also had a carotid endarterectomy on the left side. Plan IV will be D5 normal saline at 125 mils per hour. Routine labs to be collected including ABGs. 1 view chest x-ray. Hopefully she will expectorate a sputum sample for culture. Blood cultures x2 were ordered COVID-19 testing will be done as she will likely become an inpatient. She will receive a DuoNeb treatment now and then continuous albuterol treatment 7.5 mg over the next 45 minutes to see if we can open her up a little bit. - Re-Assessments/Exams Free Text/Narrative Re-Assessment/Exam: 03/27/20 16:01 x-ray done portably reveals hyperinflated lung benavides. Cardiac silhouette is essentially normal with maybe minimal tortuous thoracic aorta. No infiltrates to suggest pneumonia. No pneumothorax. 03/27/20 16:03 Urinalysis shows slightly cloudy 1+ leukocyte esterase and 5-10 WBCs 10-20 squamous epithelial cells seen.ABGs reveal a pH of 7.53. PCO2 is 33 with a PO2 of 72. Bicarb is 27.6. O2 sats are 95.6% on 2 L by nasal cannula 03/27/20 16:35 awaiting most of her lab work. She is much better air entry into both lower lung benavides after continuous neb treatments for 45 minutes. She now has good air entry to both lower lung benavides that she did not have on my initial assessment. Sats are up to 96--97% on 2 L of oxygen as well. Going to give her a dose of Solu-Medrol 125 mg IV at this time. Last dose of steroids was back December 29 of this year prescribed by Dr. Silva. 03/27/20 16:58 Labs reveal a slightly elevated white count of 10.18. Differential is pending. Hemoglobin is 14.0 with hematocrit of 43.5. Platelet counts 239,000. PT is 11.1 with an INR of 1.02. PTT is 27. Sodium is 143 with a potassium slightly low at 3.2. Chloride is 104 with a bicarb of 31. Anion gap is 11.2. BUN is 16 with a creatinine of 0.7. GFR is greater than 60. Glucose is 85 with a lactic acid 0.5. Calcium is 9.0. Magnesium is good at 2.3. Liver function is normal. Troponin I is less than 0.017 C-reactive protein is 8.6 which is elevated BNP is 122. Total protein 7.4 with an albumin fraction of 4.1. I am going to give the patient Rocephin 2 g intravenously while she was in the department as she would prefer to try things at home before being admitted to the hospital. I am still waiting for her COVID-19 test. She has an allergy to penicillin as a child apparently broke out in a rash. 03/27/20 17:34 COVID-19 test did come back negative. Patient will be discharged home on Omnicef 300 mg twice daily for the next 8 days to clear up bronchitis and prevent pneumonia due to her severe COPD. She will also be placed on steroids prednisone 20 mg twice daily for 5 days then once in the morning only for another 5 days. We will follow-up with your personal care physician if not markedly improved in 48 hours time or return to the ED. 03/27/20 18:05 patient has completed her 2 g of Rocephin IV. She will be discharged home on Omnicef 300 mg twice daily for the next 8 days. Scripts were written and given to her at the time of discharge. Departure - Departure Time of Disposition: 18:06 Disposition: Home, Self-Care 01 Condition: Fair Clinical Impression: Acute exacerbation of chronic obstructive pulmonary disease Acute bronchitis Qualifiers: Bronchitis organism: unspecified organism Qualified Code(s): J20.9 - Acute bronchitis, unspecified - Discharge Information *PRESCRIPTION DRUG MONITORING PROGRAM REVIEWED*: Not Applicable *COPY OF PRESCRIPTION DRUG MONITORING REPORT IN PATIENT [place]: Not Applicable Prescriptions: Cefdinir [Omnicef] 300 mg PO BID #16 cap predniSONE [Prednisone] 20 mg PO ASDIRECTED #15 tablet Referrals: Zoran Zhou MD [Primary Care Provider] - Forms: ED Department Discharge Additional Instructions: Evaluation in the emergency room today in regards to development of upper respiratory tract infection with acute bronchitis and yellow sputum production. Lab test revealed an elevated CRP suggesting underlying bacterial infection. Chest x-ray was negative for pneumonia. Given the first dose of steroids Solu- Medrol intravenously and first dose of antibiotic Rocephin 2 g intravenously in the emergency department. He will need not not need further medication until tomorrow. You will need to take antibiotic Omnicef 300 mg twice daily for another 8 days to clear of infection completely. Prednisone 20 mg in the mo rning and at suppertime for 5 days and then 1 in the morning again for another 5 days. Follow-up with personal care physician in 48 to 72 hours if not markedly improved or return to the ED. Can you home oxygen therapy 2 L/min at all times until feeling better. Neb treatment as needed every 3-4 hours. Sepsis Event Note (ED) - Evaluation Sepsis Screening Result: No Definite Risk - Focused Exam Vital Signs: Vital Signs Temp Pulse Resp BP Pulse Ox Pulse Ox 03/27/20 15:31 93 L 03/27/20 14:51 37.1 C 85 20 150/77 H 91 L - My Orders Last 24 Hours: My Active Orders 03/27/20 15:13 Albuterol/Ipratropium [DuoNeb 3.0-0.5 MG/3 ML] 3 ml NEB Q4H PRN 03/27/20 15:14 RT Aerosol Therapy [RC] ASDIRECTED 03/27/20 15:15 CULTURE URINE [RM] Routine Dextrose 5%-0.9% NaCl [Dextrose 5%-Normal Saline] 1,000 ml IV ASDIRECTED 03/27/20 15:16 EKG Documentation Completion [RC] STAT Oxygen Therapy [RC] ASDIRECTED 03/27/20 15:18 Blood Culture x2 Reflex Set [OM.PC] Stat 03/27/20 15:45 CULTURE BLOOD [BC] Stat 03/27/20 15:58 CULTURE BLOOD [BC] Stat 03/27/20 16:30 CULTURE SPUTUM + SMEAR [RM] Stat - Assessment/Plan Last 24 Hours: My Active Orders 03/27/20 15:13 Albuterol/Ipratropium [DuoNeb 3.0-0.5 MG/3 ML] 3 ml NEB Q4H PRN 03/27/20 15:14 RT Aerosol Therapy [RC] ASDIRECTED 03/27/20 15:15 CULTURE URINE [RM] Routine Dextrose 5%-0.9% NaCl [Dextrose 5%-Normal Saline] 1,000 ml IV ASDIRECTED 03/27/20 15:16 EKG Documentation Completion [RC] STAT Oxygen Therapy [RC] ASDIRECTED 03/27/20 15:18 Blood Culture x2 Reflex Set [OM.PC] Stat 07/21/20 15:45 CULTURE BLOOD [BC] Stat 03/27/20 15:58 CULTURE BLOOD [BC] Stat 03/27/20 16:30 CULTURE SPUTUM + SMEAR [RM] Stat
[2020-03-27] MEDS ORDERED: Albuterol/Ipratropium 3.0-0.5 MG/3 ML Neb Soln NEB PRN (15:13)
[2020-03-27] MEDS ORDERED: Albuterol 0.083% 2.5 MG/3 ML Neb Soln NEB ONE (15:14)
[2020-03-27] MEDS ORDERED: Dextrose 5%-0.9% NaCl 1,000 ML IV SCH (15:15)
--- NOTE | 2020-03-27 15:45 | CR ---
Chest: Portable view of the chest was obtained. Comparison: Prior chest x-ray of 08/10/19. Heart size and mediastinum are normal. Minimal atelectasis is seen within the lateral left costophrenic angle. Lungs otherwise are clear. Bony structures are grossly intact. Impression: 1. Slight atelectasis within the lateral left costophrenic angle. 2. Nothing acute is otherwise seen on portable chest x-ray. Diagnostic code #2 This report was dictated in MDT
[2020-03-27] MEDS ORDERED: Albuterol 0.083% 2.5 MG/3 ML Neb Soln ONE (15:49)
[2020-03-27] MEDS ORDERED: methylPREDNISolone Sodium Succinate 125 MG/2 ML SDV IVPUSH ONE (16:36)
[2020-03-27] MEDS ORDERED: cefTRIAXone 2 GM in Sodium Chloride 0.9% 100 ML IV ONE (16:54)
== END 2020-03-27 18:49 | disposition home or self-care (01) ==
LOC: JD.ED 14:44
DX: J44.0 Chronic obstructive pulmonary disease with (acute) lower respiratory infection (principal); J20.9 Acute bronchitis, unspecified; J44.1 Chronic obstructive pulmonary disease with (acute) exacerbation; I25.10 Atherosclerotic heart disease of native coronary artery without angina pectoris; E78.00 Pure hypercholesterolemia, unspecified; K21.9 Gastro-esophageal reflux disease without esophagitis; M19.90 Unspecified osteoarthritis, unspecified site; Z79.82 Long term (current) use of aspirin; Z91.09 Other allergy status, other than to drugs and biological substances; Z88.5 Allergy status to narcotic agent; Z88.0 Allergy status to penicillin; Z91.013 Allergy to seafood; Z20.828 Contact with and (suspected) exposure to other viral communicable diseases; Z87.891 Personal history of nicotine dependence
CPT/HCPCS: 36415; 36600; 71045; 80053; 81001; 82803; 83605; 83735; 83880; 84484; 85007; 85027; 85610; 85730; 86140; 87040; 87070; 87086; 87205; 87635; 93005; 94640; 96365; 96375; 99285; J0696; J2930; J7042; J7050; 93010; 99284; J7620-GY; U0002

== ENCOUNTER 2020-04-09 18:41 | Emergency (ER) | payer OTHER ==
--- NOTE | 2020-04-09 19:30 | EDM.PDOC ---
ED HPI GENERAL MEDICAL PROBLEM - General Chief Complaint: Respiratory Problem Stated Complaint: COPD/EXPOSED TO COVID Time Seen by Provider: 04/09/20 19:00 Source of Information: Reports: Patient, Family (Son) History Limitations: Reports: No Limitations - History of Present Illness INITIAL COMMENTS - FREE TEXT/NARRATIVE: Ms. Stewart is a 60-year-old woman who, medical records indicate, was seen in this ED on 03/27/2020 with a complaint at that time of dyspnea and a cough productive of yellowish sputum for about a week. She had used her nebulizer at home multiple times without relief. She had not had a fever, and was afebrile in the ED that day. On examination, she had diminished breath sounds, particularly at the bases, but no wheezing or prolonged expiratory phase. Work- up included a CBC, CMP, magnesium level, lactic acid level, CRP, troponin, BNP, coags, an ABG, a urinalysis, a test for the SARS-CoV-2 virus, 2 sets of blood cultures, a sputum culture, a portable chest x-ray, and an ECG. Her work-up was remarkable for mildly elevated WBC count but with no left shift, mild hypokalemia of 3.2, a CRP elevated at 8.6, and an ABG that demonstrated an acute/uncompensated primary respiratory alkalosis with metabolic alkalosis. The remainder of her work-up, including her chest x-ray, was unremarkable. Treatment consisted of a DuoNeb, 2 albuterol nebs, IV ceftriaxone, and IV Solu- Medrol. She was offered admission, however, she felt better and chose to be discharged home with prescriptions for Omnicef 300 mg po BID x 8 days and prednisone 20 mg po BID x 5 days, followed by 20 mg po QAM x 5 days. The patient now returns to the ED stating that she completed her course of antibiotics and prednisone, but that her symptoms have not improved. She states that she has continued to have dyspnea and a cough productive of yellowish sputum. She states that she was at work today, and breathed in diesel fumes, which worsened her symptoms. She went home, placed herself on 2 L of oxygen, and took an albuterol neb, Spiriva, and Symbicort, with no improvement in her symptoms. She states that her oxygen saturation was 85% on 2 L per nasal cannula at home. While the patient has been told that she has COPD, she acknowledges that she has never undergone pulmonary function tests. She is currently being treated with DuoNebs, albuterol by [facility], Spiriva, and Symbicort. She states that she has an appointment to see a 3D Modeler at [facility] next 04/18/2020, and that she is scheduled to undergo PFTs prior to that appointment. Here in the ED, the patient's initial BP is found to be mildly elevated at 153/75, with a mild tachycardia of 103 bpm. She is mildly tachypneic (on the monitor, but she does not appear to be tachypneic in person), saturating 92% on 2 L of oxygen per nasal cannula. Other than her respiratory symptoms, the patient denies recent fever, chills, sore throat, ear pain, nasal or sinus congestion, chest pain, palpitations, nausea, vomiting, constipation, diarrhea, abdominal pain, urinary symptoms, recent weight gain or weight loss, recent bloody bowel movements or black bowel movements, recent joint aches, headaches, or rashes. The patient's PCP is Dr. Zoran Zhou. Her Spotter Driver is Dr. Luis Felder. Her vascular surgeon is Dr. Saturnino Miner. She does not know the name of the shank stapler at [facility] that she will be meeting on 04/18/2020. - Related Data Allergies Allergy/AdvReac Type Severity Reaction Status Date / Time iodine Allergy Hives Verified 04/09/20 18:56 morphine Allergy Shortness Verified 04/09/20 18:56 of Breath Penicillins Allergy Other Verified 04/09/20 18:56 shrimp Allergy Hives Verified 04/09/20 18:56 Home Meds: Home Meds Albuterol [Proair HFA] 1 puff PO Q4HR PRN 03/02/15 [History] Albuterol/Ipratropium [DuoNeb 3.0-0.5 MG/3 ML] 3 ml NEB Q4HRRT 03/02/15 [History] traZODone 150 mg PO BEDTIME 03/02/15 [History] Aspirin [Halfprin] 81 mg PO DAILY #30 tab.ec 03/06/15 [Rx] hydroCHLOROthiazide [Hydrochlorothiazide] 25 mg PO DAILY 11/15/17 [History] Budesonide/Formoterol Fumarate [Symbicort 80-4.5 Mcg Inhaler] 2 puff INH BID 01/02/18 [History] Clopidogrel [Plavix] 75 mg PO DAILY 01/02/18 [History] Pantoprazole [ProTONIX] 40 mg PO DAILY 01/02/18 [History] Rosuvastatin [Crestor] 20 mg PO DAILY 01/02/18 [History] Tiotropium [place] [Spiriva Respimat] 2 puff INH DAILY 04/09/20 [History] carvediloL [Carvedilol] 12.5 mg PO BID 04/09/20 [History] Past Medical History HEENT History: Reports: Impaired Vision (wears glasses) Cardiovascular History: Reports: CAD, High Cholesterol, Hypertension Respiratory History: Reports: COPD (suspected, not tested, on nightly O2 2L/NC) Gastrointestinal History: Reports: Colon Polyp, GERD Genitourinary History: Reports: Renal Calculus Musculoskeletal History: Reports: Arthritis Psychiatric History: Reports: Anxiety, Panic Attack, Other (See Below) (Insomnia) - Infectious Disease History Infectious Disease History: Reports: Chicken Pox, Measles - Past Surgical History HEENT Surgical History: Reports: Oral Surgery (wisdom teeth extraction), Tonsillectomy Cardiovascular Surgical History: Reports: Carotid Endarterectomy (left), Coronary Artery Stent (x 5, 12/29/2017), Other (See Below) (Coronary angiogram 2002 finding mild dz, 12/29/2017 with multi-vessel dz) GI Surgical History: Reports: Appendectomy, Cholecystectomy (1997), Colonoscopy (x 2) Female Surgical History: Reports: Hysterectomy (complete) Social & Family History - Family History Family Medical History: Noncontributory - Tobacco Use Smoking Status *Q: Former Smoker Years of Tobacco use: 41 Packs/Tins Daily: 1 Month/Year Tobacco Last Used: Quit 2013 - Caffeine Use Caffeine Use: Reports: Coffee - Alcohol Use Alcohol Use History: No - Recreational Drug Use Recreational Drug Use: No - Living Situation & Occupation Living situation: Reports: Single, Alone 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 ED EXAM, GENERAL - Physical Exam Exam: See Below Exam Limited By: No Limitations General Appearance: Alert, WD/WN, No Apparent Distress Eye Exam: Bilateral Eye: EOMI, Normal Inspection Ears: Normal External Exam, Hearing Grossly Normal Nose: Normal Inspection Throat/Mouth: Normal Inspection, Normal Lips, Normal Voice, No Airway Compromise Head: Atraumatic, Normocephalic Neck: Normal Inspection, Full Range of Motion Respiratory/Chest: No Respiratory Distress, Lungs Clear, No Accessory Muscle Use, Decreased Breath Sounds (throughout liung benavides, more pronounced in the lower lung benavides than apically). No: Crackles, Rhonchi, Wheezing, Stridor, Prolonged Expiration Cardiovascular: Normal Peripheral Pulses, Regular Rate, Rhythm, No Edema, No Gallop, No JVD, No Murmur, No Rub Peripheral Pulses: 3+: Radial (L), Radial (R) GI/Abdominal: Normal Bowel Sounds, Soft, Non-Tender, No Organomegaly, No Dist ention, No Abnormal Bruit, No Mass (Female) Exam: Deferred Rectal (Female) Exam: Deferred Back Exam: Normal Inspection, Full Range of Motion, NT Extremities: Normal Inspection, Normal Range of Motion, No Pedal Edema, Normal Capillary Refill Neurological: Alert, Oriented, Normal Cognition, No Motor/Sensory Deficits Psychiatric: Normal Affect Skin Exam: Warm, Dry, Intact, Normal Color, No Rash EKG INTERPRETATION EKG Date: 04/09/20 Time: 20:52 Rhythm: NSR Rate (Beats/Min): 80 [place]: Normal P-Wave: Present QRS: Normal ST-T: Normal QT: Normal Comparison: No Change (03/27/2020) Course - Vital Signs Last Recorded V/S: Last Vital Signs Temp 36.7 C 04/09/20 18:50 Pulse 87 04/09/20 23:25 Resp 24 H 04/09/20 23:25 BP 155/70 H 04/09/20 23:25 Pulse Ox 96 04/09/20 23:25 - Orders/Labs/Meds Orders: Active Orders 24 hr Category Date Time Status EKG Documentation Completion [RC] STAT Care 04/09/20 19:22 Active Chest 2V [CR] Stat Exams 04/09/20 19:22 Taken CORONAVIRUS COVID-19 PCR PHL Stat Lab 04/09/20 19:24 Ordered CULTURE BLOOD [BC] Stat Lab 04/09/20 20:45 Received CULTURE BLOOD [BC] Stat Lab 04/09/20 21:05 Received Blood Culture x2 Reflex Set [OM.PC] Stat Oth 04/09/20 19:22 Ordered Labs: Laboratory Tests 04/09/20 04/09/20 04/09/20 Range/Units 20:45 21:04 21:05 WBC 22.72 H (3.98-10.04) K/mm3 RBC 4.55 (3.98-5.22) M/mm3 Hgb 14.1 (11.2-15.7) gm/dl Hct 43.4 (34.1-44.9) % MCV 95.4 H (79.4-94.8) fl MCH 31.0 (25.6-32.2) pg MCHC 32.5 (32.2-35.5) g/dl RDW Std Deviation 51.8 H (36.4-46.3) fL Plt Count 270 (182-369) K/mm3 MPV 9.4 (9.4-12.3) fl Neutrophils % (Manual) 90 H (40-60) % Band Neutrophils % 1 (0-10) % Lymphocytes % (Manual) 4 L (20-40) % Atypical Lymphs % 0 % Monocytes % (Manual) 5 (2-10) % Eosinophils % (Manual) 0 L (0.7-5.8) % Basophils % (Manual) 0 L (0.1-1.2) Platelet Estimate Adequate RBC Morph Comment Normal D-Dimer, Quantitative (0.19-0.50) mg/L Puncture Site Lt radial ABG pH 7.50 H (7.35-7.45) ABG pCO2 34.0 L (35.0-45.0) mmHg ABG pO2 63.0 L (80.0-100.0) mmHg ABG HCO3 26.1 H (22.0-26.0) meq/L ABG O2 Saturation 93.6 L (96.0-97.0) % ABG Base Excess 3.5 H (-2-2.0) A-a Gradient 95 mmHg O2 Delivery Device Nasal cannula Oxygen Flow Rate 2.0 FiO2 28.00 (21.00-100.00) % Sodium (136-145) mEq/L Potassium (3.5-5.1) mEq/L Chloride (98-107) mEq/L Carbon Dioxide (21-32) mEq/L Anion Gap (5-15) BUN (7-18) mg/dL Creatinine (0.55-1.02) mg/dL Est Cr Clr Drug Dosing mL/min Estimated GFR (MDRD) (>60) mL/min BUN/Creatinine Ratio (14-18) Glucose (80-115) mg/dL Lactic Acid 1.5 (0.4-2.0) mmol/L Calcium (8.5-10.1) mg/dL Total Bilirubin (0.2-1.0) mg/dL AST (15-37) U/L ALT (14-59) U/L Alkaline Phosphatase (46-116) U/L Troponin I (0.00-0.056) ng/mL NT-Pro-B Natriuret Pep (0-125) pg/mL Total Protein (6.4-8.2) g/dl Albumin (3.4-5.0) g/dl Globulin gm/dL Albumin/Globulin Ratio (1-2) 04/09/20 04/09/20 04/09/20 Range/Units 21:05 21:05 21:05 WBC (3.98-10.04) K/mm3 RBC (3.98-5.22) M/mm3 Hgb (11.2-15.7) gm/dl Hct (34.1-44.9) % MCV (79.4-94.8) fl MCH (25.6-32.2) pg MCHC (32.2-35.5) g/dl RDW Std Deviation (36.4-46.3) fL Plt Count (182-369) K/mm3 MPV (9.4-12.3) fl Neutrophils % (Manual) (40-60) % Band Neutrophils % (0-10) % Lymphocytes % (Manual) (20-40) % Atypical Lymphs % % Monocytes % (Manual) (2-10) % Eosinophils % (Manual) (0.7-5.8) % Basophils % (Manual) (0.1-1.2) Platelet Estimate RBC Morph Comment D-Dimer, Quantitative 0.33 (0.19-0.50) mg/L Puncture Site ABG pH (7.35-7.45) ABG pCO2 (35.0-45.0) mmHg ABG pO2 (80.0-100.0) mmHg ABG HCO3 (22.0-26.0) meq/L ABG O2 Saturation (96.0-97.0) % ABG Base Excess (-2-2.0) A-a Gradient mmHg O2 Delivery Device Oxygen Flow Rate FiO2 (21.00-100.00) % Sodium 138 (136-145) mEq/L Potassium 3.4 L (3.5-5.1) mEq/L Chloride 100 (98-107) mEq/L Carbon Dioxide 28 (21-32) mEq/L Anion Gap 13.4 (5-15) BUN 14 (7-18) mg/dL Creatinine 0.8 (0.55-1.02) mg/dL Est Cr Clr Drug Dosing 65.61 mL/min Estimated GFR (MDRD) > 60 (>60) mL/min BUN/Creatinine Ratio 17.5 (14-18) Glucose 110 (80-115) mg/dL Lactic Acid (0.4-2.0) mmol/L Calcium 9.1 (8.5-10.1) mg/dL Total Bilirubin 0.5 (0.2-1.0) mg/dL AST 14 L (15-37) U/L ALT 32 (14-59) U/L Alkaline Phosphatase 46 (46-116) U/L Troponin I < 0.017 (0.00-0.056) ng/mL NT-Pro-B Natriuret Pep 142 H (0-125) pg/mL Total Protein 7.0 (6.4-8.2) g/dl Albumin 3.8 (3.4-5.0) g/dl Globulin 3.2 gm/dL Albumin/Globulin Ratio 1.2 (1-2) - Re-Assessments/Exams Free Text/Narrative Re-Assessment/Exam: 04/09/20 19:27 As above, the patient was seen in this ED on 03/27/2020 with a complaint at that time of dyspnea and a cough productive of yellowish sputum. Decreased breath sounds were heard on auscultation of her lungs, but no wheezing. An extensive work-up was grossly unremarkable, including an ABG that demonstrated a respiratory alkalosis. Her chest x-ray was unremarkable. She was treated with a DuoNeb, albuterol, Rocephin, IV Solu-Medrol, then discharged home with prescriptions for Omnicef x 8 days and prednisone 20 mg BID x 5 days, followed by 20 mg QAM x 5 days. She now returns stating that her symptoms did not improve despite the antibiotics and prednisone course, that she has continued to have dyspnea and a cough productive of yellowish sputum. She states that her symptoms worsened after she was exposed to some diesel fumes at work, and when she went home, she took an albuterol neb, Spiriva, and Symbicort. She placed herself on 2 L of oxygen per nasal cannula, finding her oxygen saturation to be 85%. Here in the ED, however, the patient is saturating 92% on 2 L of oxygen per nasal cannula. On examination, the patient has generally diminished breath sounds all over her lung benavides, more at the bases than at the apices, but there is no suggestion whatsoever of any crackles or wheezing, and she does not have a prolonged expiratory phase. The remainder of her physical exam is unremarkable. On her last visit, the patient was diagnosed with a COPD exacerbation and acute bronchitis, however, I do not believe that her work-up supports those diagnoses. With a COPD exacerbation, one expects to find an acute or [id number]-[id number] respiratory acidosis, not alkalosis. Additionally, with a severe COPD exacerbation, air movement may be so minimal that no wheezes are produced, however, wheezing is otherwise produced, since, strictly speaking, a COPD exacerbation is really an exacerbation of chronic bronchitis, not of emphysema. While the patient had diminished breath sounds, she did not have a prolonged expiratory phase or wheezing on examination. Further, the diagnosis of pneumonia is both a clinical and radiographic diagnosis, requiring an infiltrate on a chest x-ray or CT scan, and on the patient's previous evaluation, no such infiltrate was found. Not actually having a COPD exacerbation or pneumonia would help to explain why the patient did not derive benefit for treatment of those illnesses. For today's purposes, I have ordered a work-up that includes blood work, an ABG, a chest x-ray, and an ECG. 04/09/20 19:43 The patient and her son were seen leaving the ED. I was not notified that the patient intended to leave. When I asked her nurse, ASHISH Olivera, she stated that the patient had told the admitting infection control specialist that she had been exposed to COVID-19, therefore, because of her respiratory complaint and that information, the patient had (correctly) been put into one of our negative pressure rooms. The patient's son had been brought back in error, and was not supposed to be in there. When Joselin HINOJOSA explained the situation and asked him to leave, the patient's son apparently became hostile and told his mother that she needed to leave. The patient's mother insisted that she had been tested previously for COVID-19, and that she did not have COVID-19. Both the patient and her son were angry that she had been put into a negative pressure room, the son apparently believing that being in a negative pressure room increases the patient's risk of acquiring COVID-19, as he told Joselin HINOJOSA that if his mother acquired it because of being in that room, it would kill her. The patient then removed her telemetry leads, blood pressure cuff, and pulse oximeter, and the two of them then left the ED. 04/09/20 20:14 Notified that the patient has been placed back into her exam room. She has agreed to proceed with the previously ordered tests, but is refusing to be tested for the SARS-CoV-2 virus. 04/09/20 21:37 Although I do not have the chemistry panel back yet, the patient's ABG appears to demonstrate an acute/uncompensated primary respiratory alkalosis with a concomitant metabolic alkalosis. 04/09/20 21:57 The patient's CMP is remarkable for a potassium slightly depressed at 3.4, with the remainder of her CMP being unremarkable. Her lactic acid level is within normal limits at 1.5. Her troponin is undetectably low. Her BNP is slightly elevated at 142. Her D-dimer is within normal limits at 0.33. With the additional information from the CMP, the interpretation of the patient's ABG is unchanged. 04/09/20 22:07 The patient's CBC is remarkable for a WBC count elevated at 22.72, but with only 1% bandemia. The remainder of her CBC is unremarkable. 04/09/20 22:08 Two-view chest radiograph reviewed. The cardiac silhouette is within normal limits. No pulmonary vascular congestion. No pleural effusions. There is a quarter sized increased opacity at the left base that could represent an inf iltrate versus atelectasis versus a mass. There is hyperinflation and bilateral diaphragmatic flattening, consistent with COPD. No pneumothorax. I have asked to have Radiology interpret this radiograph. 04/09/20 22:45 2-view chest radiograph is read by [facility] as: 1. Increased alveolar opacities in the left lung base and near the cardiac apex, concerning for pneumonia versus atelectasis. 2. Suspect underlying COPD. 04/09/20 23:04 Test results discussed with the patient. As above, the patient did not have any wheezing on auscultation, and her ABG confirmed a respiratory alkalosis. She i s therefore not suffering from a COPD exacerbation. I do not believe that the patient is suffering from pneumonia, since she has not had a fever, and while I can't say whether or not she had pneumonia when she was last seen here on 03/27/2020, she was treated for it with Rocephin and an 8-day course of Omnicef. If the opacity at her left lower lobe does represent an infiltrate, one should be aware that it takes about a month for an infiltrate on a chest x-ray to resolve, therefore I do not see an indication to treat for pneumonia at this time. I offered to perform a CT scan of the patient's chest with IV contrast to better elucidate the left lower lobe opacity, but the patient declined. I explained that respiratory alkalosis is usually caused by anxiety, but can be caused by a number of physiologic abnormalities, such as an acute WI, a CHF exacerbation, a pulmonary embolus, overwhelming sepsis, etc., but that none of those issues are occurring in the patient at this time. Her leukocytosis is due to her recent course of prednisone. The patient confirmed that she used to have anxiety and panic attacks when she was younger, but she does not feel that what she is currently experiencing is an anxiety attack. I reassured her that it is, made worse whenever she takes albuterol or DuoNeb, since they only increase her respiratory drive. Going forward, I am recommending that she try to limit the use of her albuterol and DuoNeb, unless she is dyspneic, with actual wheezing, +/- a cough. She is to undergo previously scheduled pulmonary function tests in preparation for seeing a 3D Modeler at [facility] on 04/18/2020. I suspect that her PFTs will confirm that she has emphysema +/-chronic bronchitis. Her 3D Modeler can then establish a good long-term management plan. The patient expressed understanding. Departure - Departure Time of Disposition: 23:12 Disposition: Home, Self-Care 01 Condition: Good Clinical Impression: Hyperventilation syndrome - Discharge Information *PRESCRIPTION DRUG MONITORING PROGRAM REVIEWED*: Not Applicable *COPY OF PRESCRIPTION DRUG MONITORING REPORT IN PATIENT [place]: Not Applicable Instructions: Hyperventilation Referrals: Zoran Zhou MD [Primary Care Provider] - Luis Felder DO [Ordering Only Provider] - Saturnino Miner MD [Ordering Only Provider] - Forms: ED Department Discharge Additional Instructions: You were seen in the emergency room for continued shortness of breath with a cough productive of yellowish sputum, despite being recently treated with a course of antibiotics and prednisone. Work-up in the ER included blood work, an arterial blood gas, a chest x-ray, and an ECG. Your work-up found that you are suffering from hyperventilation, which is the opposite of a COPD exacerbation. Hyperventilation is usually caused by anxiety, but can be caused by a number of medical conditions, including liver failure, severe anemia, and overwhelming infection, recent heart attack, a collapsed lung, abnormal heart rhythms, congestive heart failure, or a blood clot in your lungs. All of these conditions have been ruled out. Going forward, we recommend that you try to limit as much as possible your use of albuterol and DuoNeb. Only take 1 of them if you are having shortness of breath with actual wheezing, with or without cough. Go ahead and get the pulmonary function test as previously scheduled, in preparation for your visit to a 3D Modeler at [facility] on 04/18/2020. If any other problems, please do not hesitate to return to the ER. Sepsis Event Note (ED) - Evaluation Sepsis Screening Result: No Definite Risk - Focused Exam Vital Signs: Vital Signs Temp Pulse Resp BP Pulse Ox 04/09/20 23:25 87 24 H 155/70 H 96 04/09/20 20:53 84 126/65 96 04/09/20 18:50 36.7 C 103 H 24 H 153/75 H 92 L - My Orders Last 24 Hours: My Active Orders 04/09/20 19:22 EKG Documentation Completion [RC] STAT Chest 2V [CR] Stat Blood Culture x2 Reflex Set [OM.PC] Stat 04/09/20 19:24 CORONAVIRUS COVID-19 PCR PHL Stat 04/09/20 20:45 CULTURE BLOOD [BC] Stat 04/09/20 21:05 CULTURE BLOOD [BC] Stat - Assessment/Plan Last 24 Hours: My Active Orders 04/09/20 19:22 EKG Documentation Completion [RC] STAT Chest 2V [CR] Stat Blood Culture x2 Reflex Set [OM.PC] Stat 04/09/20 19:24 CORONAVIRUS COVID-19 PCR PHL Stat 04/09/20 20:45 CULTURE BLOOD [BC] Stat 04/09/20 21:05 CULTURE BLOOD [BC] Stat
[2020-04-10 00:14] VITALS: BP 155/70; PULSE 87
--- NOTE | 2020-04-10 09:03 | CR ---
Chest: 2 views of the chest were obtained. Comparison: Prior chest x-ray of 01/07/17. Slight density off the left cardiac apex increased from previous study. Lungs otherwise are clear but hyperinflated. Slight degenerative change is scattered within spine disc space narrowing and endplate spurring. Heart size is normal. Upper mediastinum is normal. Impression: 1. Possible developing left lower lobe pneumonia. Findings are slightly more prominent than on previous study. 2. Probable emphysematous change. Diagnostic code #3 This report was dictated in MDT I agree with preliminary report from [facility], finalized on 04/09/20, 11:20 PM Central Daylight Time
== END 2020-04-09 23:30 | disposition home or self-care (01) ==
LOC: JD.ED 18:41
DX: F45.8 Other somatoform disorders (principal); I10 Essential (primary) hypertension; E78.00 Pure hypercholesterolemia, unspecified; I25.10 Atherosclerotic heart disease of native coronary artery without angina pectoris; K21.9 Gastro-esophageal reflux disease without esophagitis; M19.90 Unspecified osteoarthritis, unspecified site; F41.9 Anxiety disorder, unspecified; Z87.891 Personal history of nicotine dependence; Z88.5 Allergy status to narcotic agent; Z88.0 Allergy status to penicillin; Z91.013 Allergy to seafood; Z88.8 Allergy status to other drugs, medicaments and biological substances; Z79.899 Other long term (current) drug therapy; Z79.82 Long term (current) use of aspirin; Z79.02 Long term (current) use of antithrombotics/antiplatelets
CPT/HCPCS: 36415; 36600; 71046; 71046-26; 80053; 82803; 83605; 83880; 84484; 85007; 85027; 85379; 87040; 93005; 93010; 99283; 99285-25

== ENCOUNTER 2020-07-27 07:09 | Emergency (ER) | payer OTHER ==
[2020-07-27 07:25] VITALS: BP 145/86; PULSE 68
[2020-07-27] MEDS ORDERED: LORazepam 2 MG/ML SDV IV ONE (07:35)
[2020-07-27] MEDS ORDERED: LORazepam 0.5 MG Tab PO ONE (07:40)
--- NOTE | 2020-07-27 07:42 | EDM.PDOC ---
ED HPI GENERAL MEDICAL PROBLEM - General Chief Complaint: Behavioral/Psych Stated Complaint: ANXIETY Time Seen by Provider: 07/27/20 07:36 Source of Information: Reports: Patient History Limitations: Reports: No Limitations - History of Present Illness INITIAL COMMENTS - FREE TEXT/NARRATIVE: 60-year-old female presents to the ED very agitated restless with no sleep all night. She states she took 40 mg of prednisone yesterday morning for asthma symptoms and since that time is felt increased restlessness and tremulousness agitation akathisia-like symptoms with inability to sleep and/or relax. She also feels that when she uses her inhalers now they make her even more jittery and agitated. Patient admits to tremendous mood swings with tearfulness as well. Onset: Gradual Onset Date: 07/26/20 Duration: Hour(s):, Constant, Getting Worse Location: Reports: Generalized (NeurolysedSymptoms of anxiety and restlessness with akathisia-like symptoms.) Severity: Moderate Improves with: Reports: None Worsens with: Reports: None (To severe) Context: Reports: Other (Adverse effects of taking prednisone 40 mg by mouth at 1 time yesterday morning.). Denies: Activity, Exercise, Lifting, Sick Contact, Trauma Associated Symptoms: Reports: Cough, Loss of Appetite, Malaise (There.). 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 LIVING EDUCATOR: Reports: Other (see below) - Related Data Allergies Allergy/AdvReac Type Severity Reaction Status Date / Time iodine Allergy Hives Verified 07/27/20 07:22 morphine Allergy Shortness Verified 07/27/20 07:22 of Breath Penicillins Allergy Other Verified 07/27/20 07:22 shrimp Allergy Hives Verified 07/27/20 07:22 Home Meds: Home Meds Albuterol [Proair HFA] 1 puff PO Q4HR PRN 03/02/15 [History] Albuterol/Ipratropium [DuoNeb 3.0-0.5 MG/3 ML] 3 ml NEB Q4HRRT 03/02/15 [History] traZODone 150 mg PO BEDTIME 03/02/15 [History] hydroCHLOROthiazide [Hydrochlorothiazide] 25 mg PO DAILY 11/15/17 [History] Clopidogrel [Plavix] 75 mg PO DAILY 01/02/18 [History] Pantoprazole [ProTONIX] 40 mg PO DAILY 01/02/18 [History] Rosuvastatin [Crestor] 20 mg PO DAILY 01/02/18 [History] Tiotropium [place] [Spiriva Respimat] 2 puff INH DAILY 04/09/20 [History] carvediloL [Carvedilol] 12.5 mg PO BID 04/09/20 [History] Fluticasone/Vilanterol [Breo Ellipta 100-25 MCG Inhalation Kit] 1 puff INH DAILY 07/27/20 [History] LORazepam [Ativan] 0.5 mg PO Q6H PRN #4 tablet 07/27/20 [Rx] predniSONE [Prednisone] 40 mg PO DAILY PRN 07/27/20 [History] Past Medical History HEENT History: Reports: Impaired Vision Other HEENT History: Wears glasses Cardiovascular History: Reports: CAD, High Cholesterol, Hypertension Other Cardiovascular History: leaking mitral valve Respiratory History: Reports: COPD Other Respiratory History: Has Duoneb inhalers PRN. 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 Musculoskeletal History: Reports: Arthritis Psychiatric History: Reports: Anxiety, Panic Attack Other Psychiatric History: 1997 Other Hematologic History: with - Infectious Disease History Infectious Disease History: Reports: Chicken Pox, Measles - Past Surgical History HEENT Surgical History: Reports: Oral Surgery, Tonsillectomy Cardiovascular Surgical History: Reports: Carotid Endarterectomy, Coronary Artery Stent, Other (See Below) Other Cardiovascular Surgeries/Procedures: History of cardiac catheterization, 5 carotid artery stents placed GI Surgical History: Reports: Appendectomy, Cholecystectomy, Colonoscopy Female Surgical History: Reports: Hysterectomy Other Female Surgeries/Procedures: right breast biopsy Social & Family History - Family History Family Medical History: No Pertinent Family History - Tobacco Use Tobacco Use Status *Q: Former Tobacco User Used Tobacco, but Quit: Yes Month/Year Tobacco Last Used: 09/2014 - Caffeine Use Caffeine Use: Reports: Coffee - Recreational Drug Use Recreational Drug Use: No - Living Situation & Occupation Living situation: Reports: Single, Alone 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 Denies: Fever, Chills HEENT: Reports: Glasses Respiratory: Reports: Wheezing, Cough. Denies: Pleuritic Chest Pain (A minimal.), Sputum, Hemoptysis (Productive) Cardiovascular: Reports: Blood Pressure Problem, Dyspnea on Exertion, Lightheadedness. Denies: Chest Pain, Claudication, Edema, Orthopnea Endocrine: Reports: Fatigue GI/Abdominal: Reports: Nausea. Denies: Vomiting : Reports: Frequency Skin: Reports: No Symptoms Neurological: Reports: Dizziness, Weakness, Other Psychiatric: Reports: Anxiety (Closeness agitation mood swings), Mood Lability, Other Hematologic/Lymphatic: Denies: No Symptoms Immunologic: Denies: No Symptoms ED EXAM, NEURO - Physical Exam Exam: See Below Exam Limited By: No Limitations General Appearance: Alert, WD/WN, Anxious, Moderate Distress, Other (Temperature is 36.2. Heart rate 68 sinus respiratory is 18 O2 sats 97% room air BP 1 4586.) Eye Exam: Bilateral Eye: Normal Inspection (Mild conjunctival injection bilaterally from crying.), PERRL Throat/Mouth: Normal Inspection, Normal Lips, Normal Oropharynx Head Exam: Atraumatic, Normocephalic Neck: Normal Inspection, Supple, Non-Tender, Full Range of Motion. No: Lymphadenopathy (L), Lymphadenopathy (R) Respiratory/Chest: No Respiratory Distress, Lungs Clear, Normal Breath Sounds, No Accessory Muscle Use. No: Wheezing Cardiovascular: Normal Peripheral Pulses, Regular Rate, Rhythm, No Edema, No Gallop, No Murmur, No Rub Neurological: Alert, Normal Dorsiflexion, CN II-XII Intact, Normal Gait, Normal Reflexes, Oriented x 3 Extremities: Normal Inspection, Normal Range of Motion, Non-Tender, No Pedal Edema Psychiatric: Anxious, Tearful, Other Skin Exam: Warm, Dry, Normal Color, No Rash Course - Vital Signs Last Recorded V/S: Last Vital Signs Temp 36.2 C 07/27/20 07:19 Pulse 68 07/27/20 07:19 Resp 18 07/27/20 07:19 BP 145/86 H 07/27/20 07:19 Pulse Ox 97 07/27/20 07:19 - Orders/Labs/Meds Meds: Medications Discontinued Medications Generic Name Dose Route Start Last Admin Trade Name Vincent PRN Reason Stop Dose Admin Lorazepam 0.5 mg 07/27/20 07:35 Ativan IV 07/27/20 07:36 ONETIME ONE Lorazepam 0.5 mg 07/27/20 07:40 Ativan PO 07/27/20 07:41 ONETIME ONE - Radiology Interpretation Free Text/Narrative:: 60-year-old female presents to the ED feeling generalized restlessness, agitation, insomnia with mood swings and tearfulness. This occurred after taking 40 mg of prednisone yesterday in the morning as a single dose for asthma symptoms. She has used it in the past but not in the same way. Examination reveals her lungs to be clear with no wheezing. Sats are 97% on room air. Appears that current symptoms are secondary to side effects of the prednisone. They will likely wear off over the next 12 to 24 hours. Patient will be given Ativan 0.5 mg by mouth now with 4 tablets in a prescription form to use every 6 hours as needed for similar symptoms if required. Hopefully should build to get some sleep this morning. Departure - Departure Time of Disposition: 07:37 Disposition: Home, Self-Care 01 Condition: Fair Clinical Impression: Adverse effects of medication Qualifiers: Encounter type: initial encounter Qualified Code(s): T50.905A - Adverse effect of unspecified drugs, medicaments and biological substances, initial encounter - Discharge Information *PRESCRIPTION DRUG MONITORING PROGRAM REVIEWED*: Not Applicable *COPY OF PRESCRIPTION DRUG MONITORING REPORT IN PATIENT [place]: Not Applicable Prescriptions: LORazepam [Ativan] 0.5 mg PO Q6H PRN #4 tablet PRN Reason: anxiety relief Referrals: Zoran Zhou MD [Primary Care Provider] - Forms: ED Department Discharge Additional Instructions: Evaluation in the emergency room today in regards to the development of significant side effects due to taking prednisone 40 mg by mouth orally y morning. This resulted in stimulation of the brain with diffuse restlessness and tremor and inability to sleep with mood swings with crying etc. Suggest use of Ativan 0.5 mg by mouth every 6 hours as needed for relief of symptoms. You were given a low dose of Ativan while in the emergency room if you are still feeling very restless in 2 hours time he may take a second tablet which will hopefully provide sleep for the next 6 or 8 hours. The main side effects of the steroid will be dissipating by about suppertime tonight. Sepsis Event Note (ED) - Evaluation Sepsis Screening Result: No Definite Risk - Focused Exam Vital Signs: Vital Signs Temp Pulse Resp BP Pulse Ox 07/27/20 07:19 36.2 C 68 18 145/86 H 97
== END 2020-07-27 08:01 | disposition home or self-care (01) ==
LOC: JD.ED 07:09
DX: R45.1 Restlessness and agitation (principal); T38.0X5A Adverse effect of glucocorticoids and synthetic analogues, initial encounter; R53.1 Weakness; I10 Essential (primary) hypertension; E78.00 Pure hypercholesterolemia, unspecified; I25.10 Atherosclerotic heart disease of native coronary artery without angina pectoris; J44.9 Chronic obstructive pulmonary disease, unspecified; K21.9 Gastro-esophageal reflux disease without esophagitis; F41.9 Anxiety disorder, unspecified; Z87.891 Personal history of nicotine dependence; Z91.048 Other nonmedicinal substance allergy status; Z88.5 Allergy status to narcotic agent; Z88.0 Allergy status to penicillin; Z91.013 Allergy to seafood; Z79.899 Other long term (current) drug therapy; Z79.02 Long term (current) use of antithrombotics/antiplatelets
CPT/HCPCS: 99284; A9270

== ENCOUNTER 2021-01-12 15:04 | Emergency (ER) | payer OTHER ==
[2021-01-12] MEDS ORDERED: Acetaminophen 325 MG Tab PO ONE (16:03)
[2021-01-12 16:07] VITALS: BP 172/77; PULSE 81
--- NOTE | 2021-01-12 17:39 | EDM.PDOC ---
ED HPI GENERAL MEDICAL PROBLEM - General Chief Complaint: Lower Extremity Injury/Pain Stated Complaint: R SIDE HIP PAIN Time Seen by Provider: 01/12/21 15:57 Source of Information: Reports: Patient, RN Notes Reviewed - History of Present Illness INITIAL COMMENTS - FREE TEXT/NARRATIVE: 60 yr old female lost her balance reaching for some fallen keys outdoors, fell forward landing no her L hand. Has had discomfort L hip as well. Did not hit her head or face. No neck or back pain. No chest pain or difficulty breathing. Left Wrist Pain Score (Numeric/FACES): 10 Bilateral Hip Pain Score (Numeric/FACES): 7 - Related Data Allergies Allergy/AdvReac Type Severity Reaction Status Date / Time iodine Allergy Hives Verified 01/12/21 16:04 morphine Allergy Shortness Verified 01/12/21 16:04 of Breath Penicillins Allergy Other Verified 01/12/21 16:04 shrimp Allergy Hives Verified 01/12/21 16:04 Home Meds: Home Meds Albuterol [Proair HFA] 1 puff PO Q4HR PRN 03/02/15 [History] Albuterol/Ipratropium [DuoNeb 3.0-0.5 MG/3 ML] 3 ml NEB Q4HRRT 03/02/15 [ History] traZODone 150 mg PO BEDTIME 03/02/15 [History] hydroCHLOROthiazide [Hydrochlorothiazide] 25 mg PO DAILY 11/15/17 [History] Clopidogrel [Plavix] 75 mg PO DAILY 01/02/18 [History] Pantoprazole [ProTONIX] 40 mg PO DAILY 01/02/18 [History] Rosuvastatin [Crestor] 20 mg PO DAILY 01/02/18 [History] Tiotropium [place] [Spiriva Respimat] 2 puff INH DAILY 04/09/20 [History] carvediloL [Carvedilol] 12.5 mg PO BID 04/09/20 [History] Fluticasone/Vilanterol [Breo Ellipta 100-25 MCG Inhalation Kit] 1 puff INH DAILY 07/27/20 [History] LORazepam [Ativan] 0.5 mg PO Q6H PRN #4 tablet 07/27/20 [Rx] predniSONE [Prednisone] 40 mg PO DAILY PRN 07/27/20 [History] Past Medical History HEENT History: Reports: Impaired Vision Other HEENT History: Wears glasses Cardiovascular History: Reports: CAD, High Cholesterol, Hypertension Other Cardiovascular History: leaking mitral valve Respiratory History: Reports: COPD, Other (See Below) Other Respiratory History: Has Duoneb inhalers PRN. Currently being treated for Bronchitis. 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 Musculoskeletal History: Reports: Arthritis Psychiatric History: Reports: Anxiety, Panic Attack Other Psychiatric History: 1997 Other Hematologic History: with - Infectious Disease History Infectious Disease History: Reports: Chicken Pox, Measles - Past Surgical History HEENT Surgical History: Reports: Oral Surgery, Tonsillectomy Cardiovascular Surgical History: Reports: Carotid Endarterectomy, Coronary Artery Stent, Other (See Below) Other Cardiovascular Surgeries/Procedures: History of cardiac catheterization, 5 carotid artery stents placed GI Surgical History: Reports: Appendectomy, Cholecystectomy, Colonoscopy Female Surgical History: Reports: Hysterectomy Other Female Surgeries/Procedures: right breast biopsy Social & Family History - Family History Family Medical History: No Pertinent Family History - Tobacco Use Tobacco Use Status *Q: Never Tobacco User - Caffeine Use Caffeine Use: Reports: Coffee - Recreational Drug Use Recreational Drug Use: No - Living Situation & Occupation Living situation: Reports: Single, Alone 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 Denies: Neck Pain Neurological: Denies: Numbness, Tingling, Trouble Speaking, Weakness ED EXAM, GENERAL - Physical Exam Exam: See Below General Appearance: Alert, No Apparent Distress Eye Exam: Bilateral Eye: PERRL Ears: Normal External Exam Nose: Normal Inspection Throat/Mouth: Normal Inspection Head: Atraumatic Neck: Supple, Non-Tender Respiratory/Chest: No Respiratory Distress, Lungs Clear, Normal Breath Sounds, Other (Tender L lateral chest) Cardiovascular: Regular Rate, Rhythm GI/Abdominal: Non-Tender Extremities: Other (Tender L wrist, no visible deformity, good ROM wrist, fingers and thumb, good weight tester strength) Neurological: Alert, Oriented, No Motor/Sensory Deficits Skin Exam: Warm, Dry, Normal Color Course - Vital Signs Last Recorded V/S: Last Vital Signs Temp 98.2 F 01/12/21 15:55 Pulse 81 01/12/21 15:55 Resp 18 01/12/21 15:55 BP 172/77 H 01/12/21 15:55 Pulse Ox 90 L 01/12/21 15:55 - Orders/Labs/Meds Orders: Active Orders 24 hr Category Date Time Status Hip Min 2V or 3V w Pelvis Lt [CR] Stat Exams 01/12/21 16:04 Taken Ribs 2V w Chest Lt [CR] Stat Exams 01/12/21 16:04 Taken Wrist Comp Min 3V Lt [CR] Stat Exams 01/12/21 16:04 Taken Durable Medical Equipment for Discharge [DME for Oth 01/12/21 17:36 Ordered Discharge] [COMM] Stat Meds: Medications Discontinued Medications Generic Name Dose Route Start Last Admin Trade Name Trentq PRN Reason Stop Dose Admin Acetaminophen 975 mg 01/12/21 16:03 01/12/21 16:34 Acetaminophen 325 Mg Tab PO 01/12/21 16:04 975 mg NOW ONE Administration - Re-Assessments/Exams Free Text/Narrative Re-Assessment/Exam: 01/12/21 17:45 X rays, no visible fx. Departure - Departure Time of Disposition: 17:33 Disposition: Home, Self-Care 01 Condition: Fair Clinical Impression: Fall Qualifiers: Encounter type: initial encounter Qualified Code(s): W19.XXXA - Unspecified fall, initial encounter Left wrist sprain Qualifiers: Encounter type: initial encounter Qualified Code(s): S63.502A - Unspecified sprain of left wrist, initial encounter Contusion of hip Qualifiers: Encounter type: initial encounter Laterality: left Qualified Code(s): S70.02XA - Contusion of left hip, initial encounter - Discharge Information Referrals: Zoran Zhou MD [Primary Care Provider] - Forms: ED Department Discharge Additional Instructions: Wrist splint for 5 to 7 days or until discomfort resolving. Ice packs this evening as needed. Than alternate ice and heat as needed. Tylenol q 6 to 8 hr as needed. Follow up clinic if not much better within 5 to 7 days as expected. Return to ED as needed. Sepsis Event Note (ED) - Evaluation Sepsis Screening Result: No Definite Risk - Focused Exam Vital Signs: Vital Signs Temp Pulse Resp BP Pulse Ox 01/12/21 15:55 98.2 F 81 18 172/77 H 90 L - My Orders Last 24 Hours: My Active Orders 01/12/21 16:04 Hip Min 2V or 3V w Pelvis Lt [CR] Stat Ribs 2V w Chest Lt [CR] Stat Wrist Comp Min 3V Lt [CR] Stat 01/12/21 17:36 Durable Medical Equipment for Discharge [DME for Discharge] [COMM] Stat - Assessment/Plan Last 24 Hours: My Active Orders 01/12/21 16:04 Hip Min 2V or 3V w Pelvis Lt [CR] Stat Ribs 2V w Chest Lt [CR] Stat Wrist Comp Min 3V Lt [CR] Stat 01/12/21 17:36 Durable Medical Equipment for Discharge [DME for Discharge] [COMM] Stat
--- NOTE | 2021-01-13 09:15 | CR ---
Pelvis and left hip: AP view of the pelvis was obtained as well as an additional 2 views of the left hip. Comparison: No prior pelvis or hip study is available. Vascular calcification is noted. Minimal joint space narrowing is noted within both hips. No acute fracture, dislocation or other bony abnormality is appreciated. Impression: 1. Minimal joint space narrowing within both hips and vascular calcification. 2. Nothing acute is appreciated on AP pelvis or 2 view left hip exam. Diagnostic code #2
--- NOTE | 2021-01-13 09:16 | CR ---
Chest and left ribs: Frontal view of the chest was obtained as well as 3 views of the left ribs. Comparison: Prior chest x-ray of 04/09/20. Slight chronic parenchymal change is seen within the left lung base. Heart size and mediastinum are within normal limits. Mild degenerative change is noted within the spine. Left rib study shows no discrete left-sided rib fracture or other left-sided rib abnormality. Surgical clips are seen within the left neck. Impression: 1. Chronic findings as noted above. Nothing acute seen on supine chest x-ray. 2. No acute left rib abnormality is appreciated. Diagnostic code #2
--- NOTE | 2021-01-13 09:18 | CR ---
Left wrist: 4 views centered to the left wrist were obtained. Comparison: No prior wrist exam is available. Joint space narrowing is noted off the distal navicular bone and within the CMC joint of the thumb. Cyst is noted within the capitate bone most likely degenerative in etiology. No acute fracture, dislocation or other bony abnormality is appreciated. Impression: 1. Degenerative change as noted above. 2. Nothing acute is appreciated. Diagnostic code #2
== END 2021-01-12 18:00 | disposition home or self-care (01) ==
LOC: JD.ED 15:04
DX: S63.502A Unspecified sprain of left wrist, initial encounter (principal); S70.02XA Contusion of left hip, initial encounter; M25.551 Pain in right hip; I25.10 Atherosclerotic heart disease of native coronary artery without angina pectoris; E78.00 Pure hypercholesterolemia, unspecified; I10 Essential (primary) hypertension; J44.9 Chronic obstructive pulmonary disease, unspecified; K21.9 Gastro-esophageal reflux disease without esophagitis; Z88.5 Allergy status to narcotic agent; Z88.0 Allergy status to penicillin; Z91.013 Allergy to seafood; Z88.8 Allergy status to other drugs, medicaments and biological substances; Z79.899 Other long term (current) drug therapy; W18.30XA Fall on same level, unspecified, initial encounter
CPT/HCPCS: 71101; 73110; 73502; 99284; A9270; 99283

== ENCOUNTER 2021-08-15 19:07 | Emergency (ER) | payer OTHER ==
[2021-08-15 19:22] VITALS: PULSE 102
[2021-08-15] MEDS ORDERED: Sodium Chloride 0.9% 10 ML Syringe FLUSH PRN (19:27)
--- NOTE | 2021-08-15 19:35 | EDM.PDOC ---
ED HPI GENERAL MEDICAL PROBLEM - General Chief Complaint: Chest Pain Stated Complaint: CHEST PAIN Time Seen by Provider: 08/15/21 19:25 Source of Information: Reports: Patient History Limitations: Reports: No Limitations - History of Present Illness INITIAL COMMENTS - FREE TEXT/NARRATIVE: The patient presents with elbow pain that radiates into her chest. She says this all started about 3 weeks ago. The pain will start in both elbows and then it radiates up her arms into her chest and back. It is mostly at night and in the morning. She can get it at times in the day. Right now both elbows hurt but not her chest. She did not injure her arms. She does have a history of COPD and coronary artery disease. She has 5 stents. She went to her doctor today and she was put on some steroids for her COPD. She has no fever, chills or cough. She does have shortness of breath but that is normal for her COPD. She has no abdominal pain, nausea or vomiting. Onset: Gradual Duration: Week(s): (3) Location: Reports: Chest, Back, Upper Extremity, Left, Upper Extremity, Right Quality: Reports: Sharp Severity: Moderate Improves with: Reports: None Worsens with: Reports: None Associated Symptoms: Reports: Chest Pain, Shortness of Breath. Denies: Cough, Fever/Chills, Headaches, Nausea/Vomiting Bilateral Elbow Pain Score (Numeric/FACES): 10 Chest Pain Score (Numeric/FACES): 5 Back Pain Score (Numeric/FACES): 8 - Related Data Allergies Allergy/AdvReac Type Severity Reaction Status Date / Time iodine Allergy Hives Verified 08/15/21 19:22 morphine Allergy Shortness Verified 08/15/21 19:22 of Breath Penicillins Allergy Other Verified 08/15/21 19:22 shrimp Allergy Hives Verified 08/15/21 19:22 Home Meds: Home Meds Albuterol [Proair HFA] 1 puff PO Q4HR PRN 03/02/15 [History] Albuterol/Ipratropium [DuoNeb 3.0-0.5 MG/3 ML] 3 ml NEB Q4HRRT 03/02/15 [History] traZODone 150 mg PO BEDTIME 03/02/15 [History] hydroCHLOROthiazide [Hydrochlorothiazide] 25 mg PO DAILY 11/15/17 [History] Clopidogrel [Plavix] 75 mg PO DAILY 01/02/18 [History] Pantoprazole [ProTONIX] 40 mg PO DAILY 01/02/18 [History] Rosuvastatin [Crestor] 20 mg PO DAILY 01/02/18 [History] Tiotropium [place] [Spiriva Respimat] 2 puff INH DAILY 04/09/20 [History] carvediloL [Carvedilol] 12.5 mg PO BID 04/09/20 [History] Fluticasone/Vilanterol [Breo Ellipta 100-25 MCG Inhalation Kit] 1 puff INH DAILY 07/27/20 [History] LORazepam [Ativan] 0.5 mg PO Q6H PRN #4 tablet 07/27/20 [Rx] predniSONE [Prednisone] 40 mg PO DAILY PRN 07/27/20 [History] Roflumilast [Daliresp] 500 mcg PO DAILY 08/15/21 [History] Venlafaxine [Effexor] 75 mg PO DAILY 08/15/21 [History] traMADol [Ultram] 50 - 100 mg PO Q6H PRN #20 tab 08/15/21 [Rx] Past Medical History HEENT History: Reports: Impaired Vision Other HEENT History: Wears glasses Cardiovascular History: Reports: CAD, High Cholesterol, Hypertension Other Cardiovascular History: leaking mitral valve Respiratory History: Reports: COPD, Other (See Below) Other Respiratory History: Has Duoneb inhalers PRN. 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 Musculoskeletal History: Reports: Arthritis Psychiatric History: Reports: Anxiety, Panic Attack Other Psychiatric History: 1997 Other Hematologic History: with - Infectious Disease History Infectious Disease History: Reports: Chicken Pox, Measles - Past Surgical History HEENT Surgical History: Reports: Oral Surgery, Tonsillectomy Cardiovascular Surgical History: Reports: Carotid Endarterectomy, Coronary Artery Stent, Other (See Below) Other Cardiovascular Surgeries/Procedures: History of cardiac catheterization, 5 carotid artery stents placed GI Surgical History: Reports: Appendectomy, Cholecystectomy, Colonoscopy Female Surgical History: Reports: Hysterectomy Other Female Surgeries/Procedures: right breast biopsy Social & Family History - Family History Family Medical History: No Pertinent Family History - Tobacco Use Tobacco Use Status *Q: Never Tobacco User - Caffeine Use Caffeine Use: Reports: Coffee - Recreational Drug Use Recreational Drug Use: No - Living Situation & Occupation Living situation: Reports: Single, Alone 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[employer]) ED ROS GENERAL - Review of Systems Review Of Systems: See Below Constitutional: Reports: No Symptoms HEENT: Reports: No Symptoms Respiratory: Reports: Shortness of Breath Cardiovascular: Reports: Chest Pain Endocrine: Reports: No Symptoms GI/Abdominal: Reports: No Symptoms : Reports: No Symptoms Musculoskeletal: Reports: Arm Pain (bilateral) ED EXAM, GENERAL - Physical Exam Exam: See Below Exam Limited By: No Limitations General Appearance: Alert, No Apparent Distress Ears: Normal External Exam Nose: Normal Inspection Head: Atraumatic, Normocephalic Neck: Normal Inspection Respiratory/Chest: No Respiratory Distress, Lungs Clear, Normal Breath Sounds Cardiovascular: Regular Rate, Rhythm, No Edema, No Murmur GI/Abdominal: Soft, Non-Tender, No Organomegaly, No Mass Extremities: Other (Pain upon palpation to both elbows. Good sensation and pulses distally) Neurological: Alert, Oriented, No Motor/Sensory Deficits #1 Interpretation EKG Date: 08/15/21 Time: 19:14 Rhythm: Other (sinus tachycardia) Rate (Beats/Min): 100 [place]: Normal P-Wave: Present QRS: Normal ST-T: Depressed (ST depression in the inferior and lateral leads) QT: Normal Course - Vital Signs Last Recorded V/S: Last Vital Signs Temp 96.8 F L 08/15/21 19:14 Pulse 102 H 08/15/21 19:14 Resp 20 08/15/21 19:14 BP Pulse Ox 95 08/15/21 19:14 - Orders/Labs/Meds Orders: Active Orders 24 hr Category Date Time Status Cardiac Monitoring [RC] . DIRECTED Care 08/15/21 19:27 Active Peripheral IV Care [RC] . DIRECTED Care 08/15/21 19:28 Active Sodium Chloride 0.9% [Saline Flush] Med 08/15/21 19:27 Active 10 ml FLUSH ASDIRECTED PRN Peripheral IV Insertion Adult [OM.PC] Stat Oth 08/15/21 19:27 Ordered Medication Orders Sodium Chloride (Sodium Chloride 0.9% 10 Ml Syringe) 10 ml FLUSH ASDIRECTED PRN PRN Reason: Keep Vein Open Last Admin: 08/15/21 19:30 Dose: 10 ml Documented by: ANAIS Labs: Laboratory Tests 08/15/21 08/15/21 08/15/21 Range/Units 19:29 19:29 19:29 WBC 10.87 H (3.98-10.04) K/mm3 RBC 4.64 (3.98-5.22) M/mm3 Hgb 14.1 (11.2-15.7) gm/dl Hct 42.8 (34.1-44.9) % MCV 92.2 D (79.4-94.8) fl MCH 30.4 (25.6-32.2) pg MCHC 32.9 (32.2-35.5) g/dl RDW Std Deviation 47.4 H (36.4-46.3) fL Plt Count 366 D (182-369) K/mm3 MPV 9.9 (9.4-12.3) fl Neut % (Auto) 82.8 H (34.0-71.1) % Lymph % (Auto) 12.2 L (19.3-51.7) % [place] % (Auto) 4.6 L (4.7-12.5) % Eos % (Auto) 0 L (0.7-5.8) Baso % (Auto) 0.1 (0.1-1.2) % Neut # (Auto) 9.00 H (1.56-6.13) K/mm3 Lymph # (Auto) 1.33 (1.18-3.74) K/mm3 [place] # (Auto) 0.50 H (0.24-0.36) K/mm3 Eos # (Auto) 0.00 L (0.04-0.36) K/mm3 Baso # (Auto) 0.01 (0.01-0.08) K/mm3 ESR 13 (0-20) mm/hr Sodium 142 (136-145) mEq/L Potassium 3.9 (3.5-5.1) mEq/L Chloride 103 (98-107) mEq/L Carbon Dioxide 25 (21-32) mEq/L Anion Gap 17.9 H (5-15) BUN 12 (7-18) mg/dL Creatinine 0.8 (0.55-1.02) mg/dL Est Cr Clr Drug Dosing 64.77 mL/min Estimated GFR (MDRD) > 60 (>60) mL/min BUN/Creatinine Ratio 15.0 (14-18) Glucose 293 H (70-99) mg/dL Calcium 9.5 (8.5-10.1) mg/dL Total Bilirubin 0.1 L (0.2-1.0) mg/dL AST 6 L (15-37) U/L ALT 23 (14-59) U/L Alkaline Phosphatase 67 (46-116) U/L Troponin I < 0.017 (0.00-0.056) ng/mL C-Reactive Protein <0.2 (<1.0) mg/dL Total Protein 7.7 (6.4-8.2) g/dl Albumin 4.0 (3.4-5.0) g/dl Globulin 3.7 gm/dL Albumin/Globulin Ratio 1.1 (1-2) Meds: Medications Generic Name Dose Route Start Last Admin Trade Name Freq PRN Reason Stop Dose Admin Sodium Chloride 10 ml 08/15/21 19:27 08/15/21 19:30 Sodium Chloride 0.9% 10 Ml Syringe FLUSH 10 ml ASDIRECTED PRN Administration Keep Vein Open - Re-Assessments/Exams Free Text/Narrative Re-Assessment/Exam: 08/15/21 19:35 I ordered an IV saline lock, EKG, CXR, and labs. 08/15/21 21:13 Her CXR shows nothing acute. Her EKG shows sinus tachycardia with no acute changes. Her CBC and CMP look good. Her troponin is negative. Her CRP and ESR are normal. She still has tenderness in her elbows. I feel this is musculoskeletal. I will give her some ultram and have her follow up with Dr Tran. Departure - Departure Time of Disposition: 21:20 Disposition: Home, Self-Care 01 Condition: Good Clinical Impression: Atypical chest pain, Bilateral arm pain Prescriptions: traMADol [Ultram] 50 - 100 mg PO Q6H PRN #20 tab PRN Reason: Pain Referrals: Zoran Zhou MD [Primary Care Provider] - Forms: ED Department Discharge Additional Instructions: Take tylenol as needed for pain. If that does not help, try the tramadol. Follow up with Dr Silva and Dr Tran. Please return if you are worse. Sepsis Event Note (ED) - Focused Exam Vital Signs: Vital Signs Temp Pulse Resp Pulse Ox 08/15/21 19:14 96.8 F L 102 H 20 95 - My Orders Last 24 Hours: My Active Orders 08/15/21 19:27 Cardiac Monitoring [RC] . DIRECTED Sodium Chloride 0.9% [Saline Flush] 10 ml FLUSH ASDIRECTED PRN Peripheral IV Insertion Adult [OM.PC] Stat 08/15/21 19:28 Peripheral IV Care [RC] . DIRECTED - Assessment/Plan Last 24 Hours: My Active Orders 08/15/21 19:27 Cardiac Monitoring [RC] . DIRECTED Sodium Chloride 0.9% [Saline Flush] 10 ml FLUSH ASDIRECTED PRN Peripheral IV Insertion Adult [OM.PC] Stat 08/15/21 19:28 Peripheral IV Care [RC] . DIRECTED
--- NOTE | 2021-08-15 20:17 | CR ---
Chest: Portable view of the chest was obtained. Comparison: Prior chest x-ray of 01/12/21. Linear scarring is seen within the right lung base. Lungs otherwise are clear. Heart size and mediastinum are normal. Mild degenerative change is noted within the spine. Impression: 1. Nothing acute is seen on portable chest x-ray. Diagnostic code #2
== END 2021-08-15 19:37 | disposition home or self-care (01) ==
LOC: JD.ED 19:07
DX: R07.89 Other chest pain (principal); M79.601 Pain in right arm; M79.602 Pain in left arm; I25.10 Atherosclerotic heart disease of native coronary artery without angina pectoris; E78.00 Pure hypercholesterolemia, unspecified; I10 Essential (primary) hypertension; K21.9 Gastro-esophageal reflux disease without esophagitis; Z88.0 Allergy status to penicillin; Z88.5 Allergy status to narcotic agent; Z91.018 Allergy to other foods; Z91.041 Radiographic dye allergy status; Z79.899 Other long term (current) drug therapy
CPT/HCPCS: 36415; 71045; 71045-26; 80053; 84484; 85025; 85652; 86140; 93005; 99284-25

== ENCOUNTER 2021-11-30 08:34 | Emergency (ER) | payer OTHER ==
[2021-11-30] MEDS ORDERED: Sodium Chloride 0.9% 10 ML Syringe FLUSH PRN (09:17)
[2021-11-30] MEDS ORDERED: Acetaminophen/oxyCODONE 325-5 MG Tab PO ONE (09:29)
[2021-11-30 10:34] VITALS: BP 103/43; PULSE 74
== END 2021-11-30 13:03 | disposition home or self-care (01) ==
LOC: JD.ED 08:34
DX: R07.9 Chest pain, unspecified (principal); R00.2 Palpitations; R42 Dizziness and giddiness; I25.10 Atherosclerotic heart disease of native coronary artery without angina pectoris; E78.00 Pure hypercholesterolemia, unspecified; I10 Essential (primary) hypertension; I25.2 Old myocardial infarction; K21.9 Gastro-esophageal reflux disease without esophagitis; J44.9 Chronic obstructive pulmonary disease, unspecified; Z88.5 Allergy status to narcotic agent; Z88.0 Allergy status to penicillin; Z91.018 Allergy to other foods; Z91.041 Radiographic dye allergy status; Z79.02 Long term (current) use of antithrombotics/antiplatelets; Z79.899 Other long term (current) drug therapy; Z95.1 Presence of aortocoronary bypass graft; Z87.891 Personal history of nicotine dependence
CPT/HCPCS: 36415; 70450; 71045; 80053; 84484; 85025; 93005; 99285; A9270

== ENCOUNTER 2021-12-27 16:14 | Emergency (ER) | payer OTHER ==
[2021-12-27] MEDS ORDERED: LORazepam 2 MG/ML SDV IVPUSH ONE (16:46)
[2021-12-27] MEDS ORDERED: Sodium Chloride 0.9% 10 ML Syringe FLUSH PRN (16:46)
[2021-12-27 17:51] VITALS: BP 136/81; PULSE 90
== END 2021-12-27 17:45 | disposition home or self-care (01) ==
LOC: JD.ED 16:14
DX: R07.89 Other chest pain (principal); F41.9 Anxiety disorder, unspecified; R79.0 Abnormal level of blood mineral; J44.9 Chronic obstructive pulmonary disease, unspecified; K21.9 Gastro-esophageal reflux disease without esophagitis; Z95.1 Presence of aortocoronary bypass graft; Z88.5 Allergy status to narcotic agent; Z88.0 Allergy status to penicillin; Z91.018 Allergy to other foods; Z91.041 Radiographic dye allergy status; Z79.899 Other long term (current) drug therapy
CPT/HCPCS: 36415; 71045; 80053; 83735; 83880; 84484; 85025; 85610; 85730; 93005; 96374; 99285; J2060; J3490; 93010; 99283

== ENCOUNTER 2022-06-24 18:15 | Emergency (ER) | payer OTHER ==
[2022-06-24 18:38] VITALS: BP 194/101; PULSE 116
[2022-06-24] MEDS ORDERED: LORazepam 2 MG/ML SDV IM ONE (19:23)
== END 2022-06-24 20:23 | disposition home or self-care (01) ==
LOC: JD.ED 18:15
DX: F43.0 Acute stress reaction (principal); J44.9 Chronic obstructive pulmonary disease, unspecified; K21.9 Gastro-esophageal reflux disease without esophagitis; Z79.899 Other long term (current) drug therapy
CPT/HCPCS: 96372; 99283; J2060

== ENCOUNTER 2023-09-06 21:00 | Emergency (ER) | payer MEDICARE, BC ==
[2023-09-06] MEDS ORDERED: Sodium Chloride 0.9% 10 ML Syringe FLUSH PRN (21:21)
[2023-09-06 21:50] LABS: BASOPHILS PERCENT AUTO 0.4 % (0.0-1.0); HEMATOCRIT 38.3 % (37.0-47.0); HEMOGLOBIN 12.4 gm/dl (12.0-16.0); IMMATURE GRAN ABSOLUTE AUTO 0.04 K/mm3 (0.00-0.05); IMMATURE GRAN PERCENT AUTO 0.4 % (0.0-0.4); LYMPHOCYTES ABSOLUTE AUTO 0.7 K/mm3 (1.0-4.8); LYMPHOCYTES PERCENT AUTO 5.9 % (24.0-44.0); MEAN CORPUSCULAR HGB CONC 32.4 g/dl (32.0-36.0); MEAN CORPUSCULAR VOLUME 83.3 fl (83.0-99.0); MEAN PLATELET VOLUME 9.7 fl (9.4-12.3); MONOCYTES ABSOLUTE AUTO 0.9 K/mm3 (0.0-0.8); MONOCYTES PERCENT AUTO 7.9 % (0.0-8.0); NEUTROPHILS ABSOLUTE AUTO 9.7 K/mm3 (1.8-7.7); NEUTROPHILS PERCENT AUTO 85.4 % (41.0-71.0); PLATELET COUNT,PLT 309 K/mm3 (150-400); WHITE BLOOD CELL COUNT,WBC 11.38 K/mm3 (3.9-11.3)
[2023-09-06 22:02] LABS: CORONAVIRUS COVID-19 NAA NEGATIVE (NEGATIVE); INFLUENZA A NAA NEGATIVE (NEGATIVE); RESPIRATORY SYNCYTIAL VIR NAA NEGATIVE (NEGATIVE)
[2023-09-06 22:15] LABS: A/G RATIO 0.9 (1-2); ALBUMIN 3.8 g/dl (3.4-5.0); ANION GAP 15.5 (5-15); BILIRUBIN TOTAL 0.3 mg/dL (0.2-1.0); BUN/CREATININE RATIO 13.3 (14-18); C-REACTIVE PROTEIN 2.1 mg/dL (<1.0); CALCIUM 9.5 mg/dL (8.5-10.1); CREATININE 0.9 mg/dL (0.55-1.02); EST CRCL DRUG DOSING (CG) 58.34 mL/min; MAGNESIUM 1.8 mg/dL (1.8-2.4); POTASSIUM,K 3.5 mEq/L (3.5-5.1); PROTEIN TOTAL,TP 7.9 g/dl (6.4-8.2)
[2023-09-06] MEDS ORDERED: Triamcinolone Acetonide 40 MG/ML 1 ML SDV INJECT ONE (23:11)
[2023-09-06 23:31] VITALS: BP 151/74; PULSE 85
== END 2023-09-06 23:30 | disposition home or self-care (01) ==
LOC: JD.ED 21:00
DX: J06.9 Acute upper respiratory infection, unspecified (principal); I10 Essential (primary) hypertension; E78.00 Pure hypercholesterolemia, unspecified; I25.10 Atherosclerotic heart disease of native coronary artery without angina pectoris; I25.2 Old myocardial infarction; J44.9 Chronic obstructive pulmonary disease, unspecified; K21.9 Gastro-esophageal reflux disease without esophagitis; Z87.891 Personal history of nicotine dependence; Z88.0 Allergy status to penicillin; Z88.5 Allergy status to narcotic agent; Z91.013 Allergy to seafood; Z91.048 Other nonmedicinal substance allergy status; Z79.899 Other long term (current) drug therapy; Z95.1 Presence of aortocoronary bypass graft; Z90.49 Acquired absence of other specified parts of digestive tract; Z90.710 Acquired absence of both cervix and uterus
CPT/HCPCS: 0241U; 36415; 71046; 80053; 83735; 85025; 86140; 99283; J3301

== ENCOUNTER 2024-10-12 09:58 | Emergency (ER) | payer MEDICARE, BC ==
[2024-10-12 10:03] VITALS: BP 177/105; PULSE 105
[2024-10-12] MEDS ORDERED: Sodium Chloride 0.9% 10 ML Syringe FLUSH PRN (10:44)
[2024-10-12 11:05] LABS: BASOPHILS PERCENT AUTO 0.5 % (0.0-1.0); EOSINOPHILS ABSOLUTE AUTO 0.1 K/mm3 (0.0-0.4); EOSINOPHILS PERCENT AUTO 0.9 % (0.0-6.0); HEMATOCRIT 41.2 % (37.0-47.0); IMMATURE GRAN ABSOLUTE AUTO 0.02 K/mm3 (0.00-0.05); IMMATURE GRAN PERCENT AUTO 0.3 % (0.0-0.4); LYMPHOCYTES ABSOLUTE AUTO 1.2 K/mm3 (1.0-4.8); LYMPHOCYTES PERCENT AUTO 16.4 % (24.0-44.0); MEAN CORPUSCULAR HEMOGLOBIN 27.5 pg (28.0-32.0); MEAN CORPUSCULAR HGB CONC 31.6 g/dl (32.0-36.0); MEAN CORPUSCULAR VOLUME 87.1 fl (83.0-99.0); MONOCYTES ABSOLUTE AUTO 0.6 K/mm3 (0.0-0.8); MONOCYTES PERCENT AUTO 7.3 % (0.0-8.0); NEUTROPHILS ABSOLUTE AUTO 5.6 K/mm3 (1.8-7.7); NEUTROPHILS PERCENT AUTO 74.6 % (41.0-71.0); PLATELET COUNT,PLT 275 K/mm3 (150-400); RED BLOOD CELL COUNT 4.73 M/mm3 (4.10-5.30); WHITE BLOOD CELL COUNT,WBC 7.54 K/mm3 (3.9-11.3)
[2024-10-12 11:38] LABS: A/G RATIO 1.1 (1-2); ALBUMIN 3.6 g/dl (3.4-5.0); ANION GAP 11.8 (5-15); BILIRUBIN TOTAL 0.3 mg/dL (0.2-1.0); BUN/CREATININE RATIO 13.8 (14-18); CALCIUM 9.6 mg/dL (8.5-10.1); CREATININE 0.8 mg/dL (0.55-1.02); EST CRCL DRUG DOSING (CG) 62.24 mL/min; POTASSIUM,K 3.8 mEq/L (3.5-5.1)
[2024-10-12 11:39] LABS: MAGNESIUM 1.9 mg/dL (1.8-2.4); TSH 1.581 uIU/mL (0.358-3.74)
== END 2024-10-12 13:10 | disposition home or self-care (01) ==
LOC: JD.ED 09:58
DX: R00.2 Palpitations (principal); R73.9 Hyperglycemia, unspecified; I11.0 Hypertensive heart disease with heart failure; I50.9 Heart failure, unspecified; I25.2 Old myocardial infarction; K21.9 Gastro-esophageal reflux disease without esophagitis; Z88.0 Allergy status to penicillin; Z88.5 Allergy status to narcotic agent; Z91.041 Radiographic dye allergy status; Z91.013 Allergy to seafood; Z90.49 Acquired absence of other specified parts of digestive tract; Z90.710 Acquired absence of both cervix and uterus; Z87.891 Personal history of nicotine dependence
CPT/HCPCS: 36415; 71045; 71045-26; 80053; 82947; 83735; 83880; 84443; 84484; 85025; 93005; 99285